=== PATIENT | female | born 1945 | race Caucasian/White ===

== ENCOUNTER 2017-08-19 23:59 | Emergency (ER) | payer MEDICARE, MEDICAID ==
[~2017-08-19] VITALS: Ht 162.6 cm; Wt 80.0 kg
[2017-08-20] MEDS ORDERED: CYCL-1 PO (01:18)
[2017-08-20 01:28] VITALS: BP 137/75
[2017-08-20] MEDS ORDERED: ibuprofen 200mg tablet PO ONE (01:35)
[2017-08-20] MEDS ORDERED: cyclobenzaprine 10mg tablet PO ONE (01:35)
== END 2017-08-20 01:33 | disposition home or self-care (01) ==
LOC: ER 23:59
DX: S46.811A Strain of other muscles, fascia and tendons at shoulder and upper arm level, right arm, initial encounter (principal); E11.9 Type 2 diabetes mellitus without complications; Z88.5 Allergy status to narcotic agent; Z79.899 Other long term (current) drug therapy; X58.XXXA Exposure to other specified factors, initial encounter; Y93.89 Activity, other specified; Y92.89 Other specified places as the place of occurrence of the external cause; Y99.8 Other external cause status
CPT/HCPCS: 99283

== ENCOUNTER 2018-01-08 06:34 | Day surgery (SDC) | payer MEDICARE, MEDICAID ==
[2018-01-06 16:49] LABS: BASOPHILS # (AUTO) 0.1 X10'3 (0-0.2); EOSINOPHILS # (AUTO) 0.3 X10'3 (0-0.9); EOSINOPHILS % (AUTO) 2.4 % (0-6); LYMPHOCYTES # (AUTO) 3.3 X10'3 (1.1-4.8); LYMPHOCYTES % (AUTO) 28.9 % (21-51); MEAN CORPUSCULAR HGB CONC 33.1 % (33.0-36.5); MEAN CORPUSCULAR VOLUME 87.6 FL (78-98); MEAN PLATELET VOLUME 9.2 FL (7.4-10.4); MONOCYTES # (AUTO) 0.8 X10'3 (0-0.9); MONOCYTES % (AUTO) 7.2 % (2-12); NEUTROPHILS # (AUTO) 6.9 X10'3 (1.8-7.7); NEUTROPHILS % (AUTO) 60.5 % (42-75); PRE OP HEMATOCRIT 43.2 % (35.0-45.0); PRE OP HEMOGLOBIN 14.3 g/dL (12.0-16.0); PRE OP PLATELET COUNT 301 X10'3 (140-440); RED BLOOD COUNT 4.93 X10'6 (4.20-5.60); RED CELL DISTRIBUTION WIDTH 15.4 % (11.5-14.5)
[2018-01-06 16:51] LABS: CLARITY,URINE SLIGHTLY CLOUDY (Clear); COLOR,URINE YELLOW (Yellow); GLUCOSE, URINE 500 mg/dl (Neg); KETONES,URINE NEGATIVE (Neg); LEUKOCYTE ESTERASE ,URINE NEGATIVE (Neg); NITRITES, URINE NEGATIVE (Neg); OCCULT BLOOD,URINE SMALL (Neg); PH,URINE 5.5 (4.8-8.0); PROTEIN,URINE >=300 mg/dl (Neg); UA COLLECTION TYPE CLN CATCH MIDSTREAM; UROBILINOGEN,URINE 0.2 E.U/dL (0.2-1.0)
[2018-01-06 17:06] LABS: ALBUMIN/GLOBULIN RATIO 0.6 (1.1-1.5); ALKALINE PHOSPHATASE 73 IU/L (46-116); BLOOD UREA NITROGEN 31 MG/DL (7-18); BUN/CREATININE RATIO 24.2 (6.6-38.0); CALCIUM 9.6 MG/DL (8.5-10.1); CHLORIDE 101 MMOL/L (99-107); CREATININE 1.28 MG/DL (0.40-0.90); PRE OP ALT 14 U/L (30-65); PRE OP ANION GAP 6 (8-16); PRE OP AST 10 U/L (10-37); PRE OP BILIRUB, TOTAL 0.2 MG/DL (0.0-1.0); PRE OP POTASSIUM 4.1 MMOL/L (3.4-5.1); PRE OP SODIUM 137 MMOL/L (135-145); TOTAL CARBON DIOXIDE 30.1 MMOL/L (24-32); TOTAL PROTEIN 8.3 G/DL (6.4-8.2); eGFR 41 ML/MIN
[2018-01-06 17:08] LABS: MUCUS STRANDS NONE SEEN /LPF (Neg); SQUAMOUS EPITHELIAL CELL,UR FEW /LPF (FEW)
[2018-01-06 17:09] LABS: BACTERIA,URINE FEW /HPF (Neg); RBC,URINE 0-2 /HPF (0-2); WBC,URINE NONE SEEN /HPF (0-4)
[2018-01-06 17:11] LABS: PRE OP GLUCOSE 271 MG/DL (70-104)
[~2018-01-08] VITALS: Ht 162.6 cm; Wt 76.2 kg
[~2018-01-08 06:34] MED LIST: CYCL-1 PO; GLIP-216 PO; LISI10TA4 PO; METF-950 PO; SIMV20TA5 PO; SITA25TA3 PO; cefazolin/dext.iso 2gm/100 ML IV ONE; famotidine 20mg tablet PO ONE; ringers solution, lacted 1,000 ML IV SCH
[2018-01-08] MEDS ORDERED: BUPIVAcaine/PF 2.5mg/ml (0.25%) 10ml vial ONE (11:06)
[2018-01-08] MEDS ORDERED: LIDOcaine 1.5% w/epinephrine 1:200,000 5ml ampul ONE (11:06)
[2018-01-08 11:30] VITALS: BP 146/82
[2018-01-08] MEDS ORDERED: fentaNYL/PF 50MCG/1 ML 2ML syringe ONE (11:38)
[2018-01-08] MEDS ORDERED: MIDAZolam 5mg/5ml vial ONE (11:38)
[2018-01-08] MEDS ORDERED: LIDOcaine 2% (20mg/ml) 5ml vial ONE (11:43)
[2018-01-08] MEDS ORDERED: propofol inj 20 ML IV ONE (11:44)
[2018-01-08] MEDS ORDERED: ringers solution, lacted 1,000 ML IV SCH (12:09)
[2018-01-08 12:10] VITALS: BP 95/76
[2018-01-08] MEDS ORDERED: fentaNYL/PF 50MCG/1 ML 2ML syringe IV PRN ×2 (12:10)
[2018-01-08] MEDS ORDERED: morphine 4 MG/ML inj SYRINge IV PRN ×2 (12:10)
[2018-01-08] MEDS ORDERED: hydrALAZINE 20mg/ml inj. IV PRN (12:10)
[2018-01-08] MEDS ORDERED: labetalol 20mg/4ml (5mg/ml) syringe IV PRN (12:10)
[2018-01-08] MEDS ORDERED: ondansetron/PF 4mg/2ml inj IV PRN (12:10)
[2018-01-08 12:20] VITALS: BP 98/74
[2018-01-08 12:30] VITALS: BP 117/71
[2018-01-08 12:40] VITALS: BP 112/68
[2018-01-08 12:50] VITALS: BP 118/76
== END 2018-01-08 12:50 | disposition home or self-care (01) ==
LOC: PAS 06:34
PROVIDERS: ATTEND Surgery
DX: M79.89 Other specified soft tissue disorders (principal); L08.89 Other specified local infections of the skin and subcutaneous tissue; G89.29 Other chronic pain; I25.2 Old myocardial infarction; E11.22 Type 2 diabetes mellitus with diabetic chronic kidney disease; I12.9 Hypertensive chronic kidney disease with stage 1 through stage 4 chronic kidney disease, or unspecified chronic kidney disease; N18.3 Chronic kidney disease, stage 3 (moderate); E66.9 Obesity, unspecified; Z88.4 Allergy status to anesthetic agent; Z87.891 Personal history of nicotine dependence; Z79.4 Long term (current) use of insulin; Z79.84 Long term (current) use of oral hypoglycemic drugs; Z68.28 Body mass index [BMI] 28.0-28.9, adult; Z79.899 Other long term (current) drug therapy; Z98.890 Other specified postprocedural states
CPT/HCPCS: 21555; 36415; 80053; 81001; 82948; 85025; 93005; J0690; J2001; J2250; J2704; J3010; J7120; 88305; A7000; J3490

== ENCOUNTER 2019-11-25 08:45 | Emergency (ER) | payer BC, MEDICAID ==
[~2019-11-25] VITALS: Ht 162.6 cm; Wt 75.9 kg
[~2019-11-25 08:45] MED LIST changes: -GLIP-216 PO; +GLIP10TA21 PO; +SIMV-42 PO; -SIMV20TA5 PO; -cefazolin/dext.iso 2gm/100 ML IV ONE; -famotidine 20mg tablet PO ONE; -ringers solution, lacted 1,000 ML IV SCH
[2019-11-25 10:01] LABS: BASOPHILS # (AUTO) 0.2 X10'3 (0-0.2); BASOPHILS % (AUTO) 1.2 % (0-1); EOSINOPHILS # (AUTO) 0.2 X10'3 (0-0.9); EOSINOPHILS % (AUTO) 1.1 % (0-6); HEMATOCRIT 37.1 % (35.0-45.0); HEMOGLOBIN 12.1 g/dl (12.0-16.0); LYMPHOCYTES # (AUTO) 2.2 X10'3 (1.1-4.8); LYMPHOCYTES % (AUTO) 13.8 % (21-51); MEAN CORPUSCULAR HGB CONC 32.7 g/dL (33.0-36.5); MEAN CORPUSCULAR VOLUME 88.9 FL (78-98); MEAN PLATELET VOLUME 9.2 FL (7.4-10.4); MONOCYTES # (AUTO) 0.9 X10'3 (0-0.9); MONOCYTES % (AUTO) 5.5 % (2-12); NEUTROPHILS # (AUTO) 12.6 X10'3 (1.8-7.7); NEUTROPHILS % (AUTO) 78.4 % (42-75); PLATELET COUNT 310 X10'3 (140-440); RED BLOOD COUNT 4.17 X10'6 (4.20-5.60); RED CELL DISTRIBUTION WIDTH 14.9 % (11.5-14.5); WHITE BLOOD COUNT 16.1 X10'3 (4.5-11.0)
[2019-11-25 10:16] LABS: ALANINE AMINOTRANSFERASE 15 U/L (12-78); ALBUMIN 2.9 G/DL (3.4-5.0); ALBUMIN/GLOBULIN RATIO 0.5 (1.1-1.5); ALKALINE PHOSPHATASE 96 IU/L (46-116); ANION GAP 8 (8-16); ASPARTATE AMINO TRANSFERASE 11 U/L (10-37); BILIRUBIN,TOTAL 0.2 MG/DL (0.1-1.0); BLOOD UREA NITROGEN 41 MG/DL (7-18); BUN/CREATININE RATIO 24.6 (6.6-38.0); CHLORIDE 105 MMOL/L (99-107); CREATININE 1.67 MG/DL (0.40-0.90); GLUCOSE 205 MG/DL (70-104); POTASSIUM 4.5 MMOL/L (3.5-5.1); SODIUM 138 MMOL/L (135-145); TOTAL CARBON DIOXIDE 24.7 MMOL/L (24-32); TOTAL PROTEIN 8.3 G/DL (6.4-8.2); eGFR 30 ML/MIN
[2019-11-25] MEDS ORDERED: DOXY100C76 PO (11:13)
[2019-11-25] MEDS ORDERED: CEPH250T PO (11:13)
[2019-11-25] MEDS ORDERED: HYDR-4383 PO (11:18)
[2019-11-25 11:28] VITALS: BP 169/76
== END 2019-11-25 11:30 | disposition home or self-care (01) ==
LOC: ER 08:47
DX: L03.116 Cellulitis of left lower limb (principal); E11.9 Type 2 diabetes mellitus without complications; F17.200 Nicotine dependence, unspecified, uncomplicated; Z88.8 Allergy status to other drugs, medicaments and biological substances; Z79.899 Other long term (current) drug therapy
CPT/HCPCS: 73630; 80053; 84145; 85025; 85651; 99284

== ENCOUNTER 2019-11-27 11:40 | Emergency (ER) | payer BC, MEDICAID ==
[~2019-11-27] VITALS: Ht 162.6 cm; Wt 75.9 kg
[~2019-11-27 11:40] MED LIST changes: +CEPH250T PO; +DOXY100C76 PO; +HYDR-4383 PO
[2019-11-27 11:51] VITALS: BP 193/83
== END 2019-11-27 13:47 | disposition home or self-care (01) ==
LOC: ER 11:41
DX: T81.49XD Infection following a procedure, other surgical site, subsequent encounter (principal); E11.9 Type 2 diabetes mellitus without complications; Z88.8 Allergy status to other drugs, medicaments and biological substances; Z79.899 Other long term (current) drug therapy
CPT/HCPCS: 99284

== ENCOUNTER 2019-12-02 13:00 | Outpatient (CLI) | payer BC, MEDICAID | END 2019-12-02 14:39 | disposition home or self-care (01) | LOC: WOUND CARE 13:00 → EDSTATUS 13:00 → WOUND CARE 14:39 | PROVIDERS: ATTEND Nurse Practitioner | DX: L03.032 Cellulitis of left toe (principal); E11.621 Type 2 diabetes mellitus with foot ulcer; L89.896 Pressure-induced deep tissue damage of other site; Z79.899 Other long term (current) drug therapy; F17.200 Nicotine dependence, unspecified, uncomplicated | CPT/HCPCS: 36416; 82948; G0463 ==

== ENCOUNTER 2020-06-30 08:27 | Emergency (ER) | payer MEDICARE, MEDICAID ==
[~2020-06-30] VITALS: Ht 162.6 cm; Wt 66.4 kg
[~2020-06-30 08:27] MED LIST changes: +APIX5TAB3 PO; +ASPI-1071 PO; +ATOR20TA66 PO; -CEPH250T PO; -CYCL-1 PO; -DOXY100C76 PO; +GABA-530 PO; +HYDR-3965 PO; -HYDR-4383 PO; +LACT1CAP26 PO; -LISI10TA4 PO; +LISI20TA28 PO; -SIMV-42 PO
[2020-06-30] MEDS ORDERED: acetaminophen 325mg tablet PO ONE (08:55)
[2020-06-30 09:20] LABS: BASOPHILS # (AUTO) 0.1 X10'3 (0-0.2); BASOPHILS % (AUTO) 0.6 % (0-1); EOSINOPHILS # (AUTO) 0.2 X10'3 (0-0.9); HEMATOCRIT 30.1 % (35.0-45.0); LYMPHOCYTES # (AUTO) 1.5 X10'3 (1.1-4.8); LYMPHOCYTES % (AUTO) 8.6 % (21-51); MEAN CORPUSCULAR HEMOGLOBIN 30.9 PG (27.0-31.0); MEAN CORPUSCULAR HGB CONC 33.3 g/dL (33.0-36.5); MEAN CORPUSCULAR VOLUME 92.6 FL (78-98); MEAN PLATELET VOLUME 8.1 FL (7.4-10.4); MONOCYTES % (AUTO) 5.7 % (2-12); NEUTROPHILS # (AUTO) 14.4 X10'3 (1.8-7.7); NEUTROPHILS % (AUTO) 84.1 % (42-75); PLATELET COUNT 599 X10'3 (140-440); RED BLOOD COUNT 3.26 X10'6 (4.20-5.60); RED CELL DISTRIBUTION WIDTH 16.2 % (11.5-14.5); WHITE BLOOD COUNT 17.1 X10'3 (4.5-11.0)
[2020-06-30 09:31] LABS: ALANINE AMINOTRANSFERASE 15 U/L (12-78); ALBUMIN 2.7 G/DL (3.4-5.0); ALBUMIN/GLOBULIN RATIO 0.6 (1.1-1.5); ALKALINE PHOSPHATASE 70 IU/L (46-116); ANION GAP 11 (8-16); ASPARTATE AMINO TRANSFERASE 16 U/L (10-37); BILIRUBIN,TOTAL 0.4 MG/DL (0.1-1.0); BLOOD UREA NITROGEN 30 MG/DL (7-18); BUN/CREATININE RATIO 16.8 (6.6-38.0); CALCIUM 9.2 MG/DL (8.5-10.1); CHLORIDE 101 MMOL/L (99-107); CREATININE 1.79 MG/DL (0.40-0.90); GLUCOSE 176 MG/DL (70-104); POTASSIUM 4.8 MMOL/L (3.5-5.1); SODIUM 138 MMOL/L (135-145); TOTAL PROTEIN 7.1 G/DL (6.4-8.2); eGFR 28 ML/MIN
[2020-06-30 09:40] LABS: CREATINE KINASE 71 U/L (26-192); MAGNESIUM 1.9 MG/DL (1.5-2.4); TROPONIN I < 0.04 NG/ML (0.0-0.05)
--- NOTE | 2020-06-30 09:50 | NUR ---
rehab services aide at bedside.
--- NOTE | 2020-06-30 11:10 | NUR ---
ISLAND DRESSING TO RIGHT ANTERIOR LOWER LEG SATURATED WITH BLOO, CLEANED WITH GAUZE AND NS, WELL APPROXIMATED, DRY AND INTACT, NO FRESH BLOOD NOTED, RAYSA INTACT: NEW ISLAND DRESSING APPLIED PATIENT HAS RIGTH HEEL OPTIFOAM COVERING A RIGHT HEEL CHRONIC WOUND THST5 ID BLACK WITH SURROUNDING TISSUE WNL DRESSING REMOVED TO RIGHT GROIN INCISON MINIMAL RED DRAINAGE: INCISON SHOWED TO MD BECAUSE OF TWO AREAS ABOUT 1 CM IN THAT AREA POUCHING OPEN IN GROIN FOLDS, CLEANED WITH CHLOHEXIDINE WASHCLOTH AND NEW ISLAND DRESSING APPLIED
[2020-06-30 11:31] LABS: TOTAL CELLS COUNTED 100
[2020-06-30 11:34] LABS: ANISOCYTOSIS 1+; PLATELET ESTIMATE INCREASED
[2020-06-30 11:39] LABS: CLARITY,URINE SLIGHTLY CLOUDY (Clear); COLOR,URINE YELLOW (Yellow); GLUCOSE, URINE NEGATIVE (Neg); KETONES,URINE TRACE mg/dl (Neg); LEUKOCYTE ESTERASE ,URINE NEGATIVE (Neg); NITRITES, URINE NEGATIVE (Neg); OCCULT BLOOD,URINE TRACE-LYSED (Neg); PH,URINE 6.5 (4.8-8.0); PROTEIN,URINE 100 mg/dl (Neg); UROBILINOGEN,URINE 0.2 E.U/dL (0.2-1.0)
[2020-06-30 11:48] LABS: UA COLLECTION TYPE STRAIGHT CATH
[2020-06-30 11:50] LABS: SQUAMOUS EPITHELIAL CELL,UR MODERATE /LPF (FEW)
[2020-06-30 11:51] LABS: BACTERIA,URINE FEW /HPF (Neg); HYALINE CASTS 0-3 /LPF (NEGATIVE); RBC,URINE 0-2 /HPF (0-2); WBC,URINE 0-4 /HPF (0-4)
--- NOTE | 2020-06-30 12:57 | NUR ---
CONTINUE WORKING ON DISCHARGE TRANSPORATATION, [facility] CAN NOT TAKE HER UNTIL 1700,. PATIENT DOES NOT HAVE HER WALKER WITH HER, SO SHE IS UNABLE TO TAKE A TAXI. DENIZ HAS NOT FRIENDS OR FAMILY TO PICK HER UP
--- NOTE | 2020-06-30 13:34 | NUR ---
speaking to social service worker lucrecia regarding transportion home per lucrecia patient has partnership insurance and it pays for rides home mesha calling for ride
[2020-06-30 15:21] VITALS: BP 145/64
[2020-07-01] MEDS ORDERED: MAGN400O6 PO (16:32)
== END 2020-06-30 15:30 | disposition home or self-care (01) ==
LOC: ER 08:27
DX: S81.801A Unspecified open wound, right lower leg, initial encounter (principal); M96.831 Postprocedural hemorrhage of a musculoskeletal structure following other procedure; W01.198A Fall on same level from slipping, tripping and stumbling with subsequent striking against other object, initial encounter; Y93.89 Activity, other specified; Y92.013 Bedroom of single-family (private) house as the place of occurrence of the external cause; Z91.81 History of falling; E11.42 Type 2 diabetes mellitus with diabetic polyneuropathy; E78.00 Pure hypercholesterolemia, unspecified; I10 Essential (primary) hypertension; Z60.2 Problems related to living alone; Z88.8 Allergy status to other drugs, medicaments and biological substances; Z79.82 Long term (current) use of aspirin; Z79.899 Other long term (current) drug therapy
CPT/HCPCS: 36415; 70450; 71045; 72125; 73560; 80053; 81001; 82550; 83735; 83880; 84145; 84484; 85007; 85025; 99285

== ENCOUNTER 2020-07-01 10:37 | Emergency (ER) | payer MEDICARE, MEDICAID ==
[~2020-07-01] VITALS: Ht 165.1 cm; Wt 66.3 kg
[2020-07-01 11:13] VITALS: BP 127/71
[2020-07-01] MEDS ORDERED: MAGN400O6 PO (16:32)
== END 2020-07-01 16:54 | disposition home or self-care (01) ==
LOC: ER 10:38
DX: T14.8XXA Other injury of unspecified body region, initial encounter (principal); K59.00 Constipation, unspecified; R11.0 Nausea; R50.9 Fever, unspecified; E11.42 Type 2 diabetes mellitus with diabetic polyneuropathy; E78.00 Pure hypercholesterolemia, unspecified; I10 Essential (primary) hypertension; Z60.2 Problems related to living alone; Z88.8 Allergy status to other drugs, medicaments and biological substances; Z79.82 Long term (current) use of aspirin; Z79.899 Other long term (current) drug therapy; X58.XXXA Exposure to other specified factors, initial encounter; Y93.89 Activity, other specified; Y92.89 Other specified places as the place of occurrence of the external cause; Y99.8 Other external cause status
CPT/HCPCS: 99283

== ENCOUNTER 2020-08-11 20:53 | Inpatient (IN) | payer MEDICARE, MEDICAID ==
[~2020-08-11] VITALS: Ht 162.6 cm; Wt 66.4 kg
[~2020-08-11 20:53] MED LIST changes: -ASPI-1071 PO; +ASPI81TA52 PO; -ATOR20TA66 PO; +ATOR40TA71 PO; +CEPH-585 PO; -GLIP10TA21 PO; +HYDR-3964 PO; -HYDR-3965 PO; -LACT1CAP26 PO; -METF-950 PO
[2020-08-11] MEDS ORDERED: sodium bicarbonate (8.4%) inj. 100 MEQ in dextrose 5%-water 1,000 ML IV ONE (21:50)
[2020-08-11 21:54] LABS: BASOPHILS % (AUTO) 0.3 % (0-1); EOSINOPHILS % (AUTO) 0.1 % (0-6); HEMATOCRIT 32.8 % (35.0-45.0); HEMOGLOBIN 10.5 g/dl (12.0-16.0); LYMPHOCYTES # (AUTO) 0.8 X10'3 (1.1-4.8); LYMPHOCYTES % (AUTO) 6.2 % (21-51); MEAN CORPUSCULAR HEMOGLOBIN 29.5 PG (27.0-31.0); MEAN CORPUSCULAR HGB CONC 32.1 g/dL (33.0-36.5); MEAN CORPUSCULAR VOLUME 91.7 FL (78-98); MONOCYTES # (AUTO) 0.6 X10'3 (0-0.9); MONOCYTES % (AUTO) 4.3 % (2-12); NEUTROPHILS # (AUTO) 11.7 X10'3 (1.8-7.7); NEUTROPHILS % (AUTO) 89.1 % (42-75); PLATELET COUNT 434 X10'3 (140-440); RED BLOOD COUNT 3.57 X10'6 (4.20-5.60); RED CELL DISTRIBUTION WIDTH 16.2 % (11.5-14.5); WHITE BLOOD COUNT 13.2 X10'3 (4.5-11.0)
[2020-08-11 22:18] LABS: ALANINE AMINOTRANSFERASE 9 U/L (12-78); ALBUMIN 3.1 G/DL (3.4-5.0); ALBUMIN/GLOBULIN RATIO 0.7 (1.1-1.5); ALKALINE PHOSPHATASE 62 IU/L (46-116); ANION GAP 9 (8-16); ASPARTATE AMINO TRANSFERASE 10 U/L (10-37); BILIRUBIN,TOTAL 0.3 MG/DL (0.1-1.0); BLOOD UREA NITROGEN 31 MG/DL (7-18); BUN/CREATININE RATIO 19.1 (6.6-38.0); CALCIUM 8.9 MG/DL (8.5-10.1); CHLORIDE 103 MMOL/L (99-107); CREATININE 1.62 MG/DL (0.40-0.90); GLUCOSE 96 MG/DL (70-104); SODIUM 139 MMOL/L (135-145); TOTAL PROTEIN 7.5 G/DL (6.4-8.2); TROPONIN I < 0.04 NG/ML (0.0-0.05); eGFR 31 ML/MIN
[2020-08-11 22:50] LABS: CLARITY,URINE CLEAR (Clear); GLUCOSE, URINE NEGATIVE (Neg); KETONES,URINE NEGATIVE (Neg); LEUKOCYTE ESTERASE ,URINE NEGATIVE (Neg); NITRITES, URINE NEGATIVE (Neg); OCCULT BLOOD,URINE MODERATE (Neg); PH,URINE 6.5 (4.8-8.0); PROTEIN,URINE 100 mg/dl (Neg); UROBILINOGEN,URINE 0.2 E.U/dL (0.2-1.0)
[2020-08-11 22:51] LABS: COLOR,URINE STRAW (Yellow); UA COLLECTION TYPE STRAIGHT CATH
[2020-08-11 22:58] LABS: BACTERIA,URINE NONE SEEN /HPF (Neg); HYALINE CASTS 0-3 /LPF (NEGATIVE); RBC,URINE 0-2 /HPF (0-2); SQUAMOUS EPITHELIAL CELL,UR NONE SEEN /LPF (FEW); WBC,URINE NONE SEEN /HPF (0-4)
[2020-08-11] MEDS ORDERED: HYDROcodone/acetaminophen 5mg/325mg tablet PO ONE (23:30)
[2020-08-11] MEDS ORDERED: INSU100I45 SQ (23:49)
[2020-08-11] MEDS ORDERED: METF-436 PO (23:49)
[2020-08-11] MEDS ORDERED: GLIP10TA21 PO (23:49)
[2020-08-12] MEDS ORDERED: dextrose 5%-water 1,000 ML IV ONE (00:10)
[2020-08-12] MEDS ORDERED: diphenhydrAMINE 25mg capsule PO PRN (00:20)
[2020-08-12] MEDS ORDERED: acetaminophen 325mg tablet PO PRN ×2 (00:20)
[2020-08-12] MEDS ORDERED: HYDROmorphone inj. 0.5 MG/0.5 ML DISP.SYRIN IV PRN (00:20)
[2020-08-12] MEDS ORDERED: magnesium hydroxide 30ml (MOM) UD suspension PO PRN (00:20)
[2020-08-12] MEDS ORDERED: dextrose 50%-water 50ml dispensing syringe IV PRN (00:20)
[2020-08-12] MEDS ORDERED: HYDROcodone/acetaminophen 5mg/325mg tablet PO PRN (00:20)
[2020-08-12] MEDS ORDERED: mag hydrox/Alum hydrox/simeth 30ml oral suspension PO PRN (00:20)
[2020-08-12] MEDS ORDERED: insulin Lispro (HumaLOG) vial - multi-dose SQ SCH (00:20)
[2020-08-12] MEDS ORDERED: glucagon, human recombinant 1mg kit SUBCUT PRN (00:20)
[2020-08-12] MEDS ORDERED: morphine 2 MG/ML inj. syringe IV PRN ×2 (00:20)
[2020-08-12] MEDS ORDERED: ondansetron 4mg rapidly disintigrating tab PO PRN (00:20)
[2020-08-12] MEDS ORDERED: bisacodyl 10mg suppository rectal RC PRN (00:20)
[2020-08-12] MEDS ORDERED: ondansetron/PF 4mg/2ml inj IV PRN (00:20)
[2020-08-12] MEDS ORDERED: acetaminophen 650mg rectal suppository RC PRN (00:20)
[2020-08-12] MEDS ORDERED: normal saline 1000ml 1,000 ML IV SCH ×2 (00:20→00:25)
[2020-08-12] MEDS ORDERED: dextrose ORAL solution 15 GM/59 ML bottle PO PRN ×2 (00:20)
[2020-08-12] MEDS ORDERED: diphenhydrAMINE 50 mg/ml inj IV PRN (00:20)
[2020-08-12] MEDS ORDERED: MESSAGE TO PHARMACY PO ONE (00:20)
[2020-08-12 00:58] LABS: MAGNESIUM 1.6 MG/DL (1.5-2.4)
--- NOTE | 2020-08-12 01:19 | NUR ---
PT REQUESTING MELATONIN TO SLEEP. RECEIVED VERBAL ORDER FOR 3MG MELATONIN PO HS
[2020-08-12] MEDS ORDERED: Melatonin 3mg tablet PO ONE (01:50)
[2020-08-12] MEDS: dextrose 50%-water 50ml dispensing syringe IV PRN ×2 (03:44→12:38)
[2020-08-12] MEDS: HYDROcodone/acetaminophen 10/325mg tab PO PRN ×5 (04:07→20:32)
--- NOTE | 2020-08-12 04:51 | NUR ---
Patient provided with milk, orange juice and crakers. She ate a bit of each. Brief changed and purewick put in place, patient able to turn side to side. Placed in gown and bed sheets changed.
[2020-08-12] MEDS ORDERED: dextrose 50%-water 50ml dispensing syringe IV ONE (06:00)
[2020-08-12] MEDS ORDERED: sodium chloride inj. 154 MEQ in Dextrose 10%-water IV solution 961.5 ML IV SCH (06:00)
--- NOTE | 2020-08-12 07:00 | NUR ---
Patient in room CASSY 360. I have received report from Marcelino SOL and had the opportunity to ask questions and assume patient care.
--- NOTE | 2020-08-12 07:17 | NUR ---
called pharmacy, d10% iv fluid will be sent up to surgical floor,RN Mat unable to take report at this time.Spoke to Torri.
[2020-08-12] MEDS ORDERED: heparin, porcine 5000 units/ml vial SQ SCH (08:00)
[2020-08-12 08:08] VITALS: BP 155/64
[2020-08-12] MEDS ORDERED: magnesium Cl slow-release 64mg tablet PO PRN (08:15)
[2020-08-12] MEDS ORDERED: potassium Cl 20 mEq SR tablet PO PRN ×2 (08:15)
[2020-08-12] MEDS ORDERED: potassium Cl 40MEQ/1/2NS 520ml 520 ML IV PRN (08:15)
[2020-08-12] MEDS ORDERED: magnesium 4gm in 100ml NS 100 ML IV PRN (08:15)
[2020-08-12] MEDS: ampicill/sulbac 1.5gm/NS 100ml 100 ML IV SCH ×3 (08:33→23:49)
[2020-08-12] MEDS: gabapentin 100mg capsule PO SCH (08:49)
[2020-08-12] MEDS: lisinopril 20mg tablet PO SCH (08:50)
[2020-08-12] MEDS: pantoprazole 40mg Tablet.DR PO SCH (08:51)
[2020-08-12] MEDS: apixaban 5mg tablet PO SCH ×2 (08:52→20:31)
[2020-08-12] MEDS: docusate sod 100mg capsule PO SCH ×2 (08:52→20:31)
[2020-08-12] MEDS: aspirin 81mg tablet.DR PO SCH (08:52)
[2020-08-12 10:13] LABS: HEMOGLOBIN A1C 6.8 % (4.5-6.2)
[2020-08-12] MEDS: Dextrose 10%-water IV solution 1,000 ML IV SCH ×3 (10:42→23:49)
[2020-08-12 11:00] VITALS: BP 148/52
--- NOTE | 2020-08-12 18:15 | NUR ---
Patient in room CASSY 360. I have received report from Joey SOL and had the opportunity to ask questions and assume patient care.
--- NOTE | 2020-08-12 18:17 | NUR ---
Problems reprioritized. Patient report given, questions answered & plan of care reviewed with Cassie SOL.
[2020-08-12 19:00] VITALS: BP 112/52
[2020-08-12] MEDS: K and/or MAG REPLACEMENT MC SCH (20:00)
[2020-08-12] MEDS: lactobacillus rhamnosus 10,000 MMU CELLS/CAPSULE PO SCH (20:32)
[2020-08-12] MEDS ORDERED: insulin glargine (Lantus) pen - multi-dose SQ SCH (21:00)
[2020-08-12] MEDS ORDERED: temazepam 15mg capsule PO PRN (21:00)
[2020-08-12] MEDS ORDERED: Melatonin 3mg tablet PO SCH (21:00)
[2020-08-13] VITALS: BP 122/64
[2020-08-13] MEDS: HYDROcodone/acetaminophen 10/325mg tab PO PRN ×2 (00:35→05:15)
--- NOTE | 2020-08-13 06:24 | NUR ---
Problems reprioritized. Patient report given, questions answered & plan of care reviewed with Rivas SOL.
--- NOTE | 2020-08-13 06:28 | NUR ---
Patient in room CASSY 360. I have received report from SWETA Matthews and had the opportunity to ask questions and assume patient care.
[2020-08-13 06:34] LABS: ALANINE AMINOTRANSFERASE 13 U/L (12-78); ALBUMIN 2.6 G/DL (3.4-5.0); ALBUMIN/GLOBULIN RATIO 0.7 (1.1-1.5); ALKALINE PHOSPHATASE 57 IU/L (46-116); ANION GAP 7 (8-16); ASPARTATE AMINO TRANSFERASE 10 U/L (10-37); BILIRUBIN,TOTAL 0.3 MG/DL (0.1-1.0); BLOOD UREA NITROGEN 18 MG/DL (7-18); BUN/CREATININE RATIO 12.2 (6.6-38.0); CALCIUM 8.4 MG/DL (8.5-10.1); CHLORIDE 101 MMOL/L (99-107); CREATININE 1.48 MG/DL (0.40-0.90); GLUCOSE 246 MG/DL (70-104); MAGNESIUM 1.4 MG/DL (1.5-2.4); PHOSPHORUS 3.3 MG/DL (2.3-4.5); POTASSIUM 3.6 MMOL/L (3.5-5.1); SODIUM 136 MMOL/L (135-145); TOTAL CARBON DIOXIDE 27.7 MMOL/L (24-32); TOTAL PROTEIN 6.5 G/DL (6.4-8.2); eGFR 34 ML/MIN
[2020-08-13 06:37] LABS: BASOPHILS # (AUTO) 0.1 X10'3 (0-0.2); BASOPHILS % (AUTO) 0.8 % (0-1); EOSINOPHILS # (AUTO) 0.5 X10'3 (0-0.9); EOSINOPHILS % (AUTO) 4.1 % (0-6); HEMATOCRIT 33.1 % (35.0-45.0); HEMOGLOBIN 10.8 g/dl (12.0-16.0); LYMPHOCYTES % (AUTO) 18.2 % (21-51); MEAN CORPUSCULAR HEMOGLOBIN 29.5 PG (27.0-31.0); MEAN CORPUSCULAR HGB CONC 32.5 g/dL (33.0-36.5); MEAN CORPUSCULAR VOLUME 90.7 FL (78-98); MONOCYTES # (AUTO) 1.1 X10'3 (0-0.9); MONOCYTES % (AUTO) 10.2 % (2-12); NEUTROPHILS # (AUTO) 7.4 X10'3 (1.8-7.7); NEUTROPHILS % (AUTO) 66.7 % (42-75); PLATELET COUNT 411 X10'3 (140-440); RED BLOOD COUNT 3.65 X10'6 (4.20-5.60); WHITE BLOOD COUNT 11.2 X10'3 (4.5-11.0)
[2020-08-13 07:00] VITALS: BP 154/58
[2020-08-13] MEDS: gabapentin 100mg capsule PO SCH (07:22)
[2020-08-13] MEDS: pantoprazole 40mg Tablet.DR PO SCH (07:22)
[2020-08-13] MEDS: lisinopril 20mg tablet PO SCH (07:22)
[2020-08-13] MEDS: apixaban 5mg tablet PO SCH (07:22)
[2020-08-13] MEDS: docusate sod 100mg capsule PO SCH (07:22)
[2020-08-13] MEDS: aspirin 81mg tablet.DR PO SCH (07:22)
[2020-08-13] MEDS: lactobacillus rhamnosus 10,000 MMU CELLS/CAPSULE PO SCH (07:22)
[2020-08-13] MEDS: ampicill/sulbac 1.5gm/NS 100ml 100 ML IV SCH (07:23)
[2020-08-13] MEDS: K and/or MAG REPLACEMENT MC SCH (08:00)
--- NOTE | 2020-08-13 09:27 | NUR ---
DM consult: Pt with A1c 6.8%, DM education not indicated at this time. Will continue to follow. Addendum: 08/13/20 at [address] Amended: Links added.
[2020-08-13] MEDS: Dextrose 10%-water IV solution 1,000 ML IV SCH (11:33)
[2020-08-13 12:45] VITALS: BP 131/68
[2020-08-13] MEDS ORDERED: AMOX-419 PO (13:58)
[2020-08-13] MEDS ORDERED: LACT1CAP26 PO (13:58)
[2020-08-13] MEDS ORDERED: PANT40TA54 PO (13:58)
--- NOTE | 2020-08-13 14:34 | NUR ---
wound pictures taken @ 0500 today. Addendum: 08/13/20 at 1435 by Rivas Davalos RN Amended: Links added.
--- NOTE | 2020-08-13 14:42 | NUR ---
Patient refuses to have insulin coverage for lunch today. She states she is going home and does not want her blood sugar to be low when she gets home.
--- NOTE | 2020-08-13 14:51 | NUR ---
Patient is alert and oriented with no complaints at this time. Discussed with patient discharge teaching including new prescriptions, home health Rn to place wound vac back on and if not [facility] wound [facility] could, follow up with [facility] wound [facility], follow up with PCP and manage DM. Patient verbalizes understanding of teaching. Wound care clinic number on discharge packet. Patient reports that she lives at [facility] and the collection clerk will be able to assist patient to her wheelchair and into her apartment. Patient reports that the technical clerk has keys to all the apartments. Patient belongings in room packed and ready for dc. Patient did not have any personal belongings that she brought from home per patient. She has no clothes to go home in. Patient given hospital gown, pants and mesh underwear to dc in. Patient appreciative of this. Cab called for patient.
--- NOTE | 2020-08-13 15:26 | NUR ---
Patient dc'd in wheelchair accompanied by x1 staff. Cab transporting home. Addendum: 08/13/20 at 1527 by Rivas Davalos RN Dc'd with all personal belingings. Addendum: 08/13/20 at 1530 by Rivas Davalos RN Personal belongings consisted of x1 shirt and x1 pant that were saturated with urine found in side drawers..
== END 2020-08-13 15:26 | disposition home health service (06) | DRG 638 ==
LOC: ER 20:54 → ED HOLD 08-12 00:17 → SUR 3N 08-12 07:46
PROVIDERS: ADMIT Family Medicine; ATTEND Family Medicine
DX: E11.649 Type 2 diabetes mellitus with hypoglycemia without coma (principal); I50.32 Chronic diastolic (congestive) heart failure; L03.116 Cellulitis of left lower limb; L03.115 Cellulitis of right lower limb; E11.42 Type 2 diabetes mellitus with diabetic polyneuropathy; N17.9 Acute kidney failure, unspecified; Z60.2 Problems related to living alone; E78.00 Pure hypercholesterolemia, unspecified; S31.109A Unspecified open wound of abdominal wall, unspecified quadrant without penetration into peritoneal cavity, initial encounter; X58.XXXA Exposure to other specified factors, initial encounter; E78.5 Hyperlipidemia, unspecified; F17.210 Nicotine dependence, cigarettes, uncomplicated; G89.4 Chronic pain syndrome; I11.0 Hypertensive heart disease with heart failure; R31.9 Hematuria, unspecified; Z79.891 Long term (current) use of opiate analgesic; Z88.8 Allergy status to other drugs, medicaments and biological substances; Z79.899 Other long term (current) drug therapy; Z79.82 Long term (current) use of aspirin; Z79.4 Long term (current) use of insulin; Y93.89 Activity, other specified; Y92.89 Other specified places as the place of occurrence of the external cause; Y99.8 Other external cause status
CPT/HCPCS: 36415; 71045; 80053; 81001; 82948; 83036; 83605; 83735; 83880; 84100; 84443; 84484; 85025; 87040; 87081; 99285; G0378; J0295; J1815; J7030; J7070

== ENCOUNTER 2020-09-24 14:47 | Emergency (ER) | payer MEDICARE, MEDICAID ==
[~2020-09-24] VITALS: Ht 162.6 cm; Wt 66.4 kg
[~2020-09-24 14:47] MED LIST changes: -ATOR40TA71 PO; -CEPH-585 PO; +GLIP10TA21 PO; +INSU100I45 SQ; +LACT1CAP26 PO; +METF-436 PO; +PANT40TA54 PO
[2020-09-24 17:01] LABS: BASOPHILS % (AUTO) 0.3 % (0-1); EOSINOPHILS # (AUTO) 0.4 X10'3 (0-0.9); EOSINOPHILS % (AUTO) 3.7 % (0-6); HEMATOCRIT 35.4 % (35.0-45.0); HEMOGLOBIN 11.5 g/dl (12.0-16.0); LYMPHOCYTES # (AUTO) 3.2 X10'3 (1.1-4.8); MEAN CORPUSCULAR HEMOGLOBIN 28.6 PG (27.0-31.0); MEAN CORPUSCULAR HGB CONC 32.5 g/dL (33.0-36.5); MEAN CORPUSCULAR VOLUME 88.1 FL (78-98); MONOCYTES # (AUTO) 0.7 X10'3 (0-0.9); MONOCYTES % (AUTO) 6.7 % (2-12); NEUTROPHILS # (AUTO) 6.6 X10'3 (1.8-7.7); NEUTROPHILS % (AUTO) 60.3 % (42-75); PLATELET COUNT 372 X10'3 (140-440); RED BLOOD COUNT 4.02 X10'6 (4.20-5.60); RED CELL DISTRIBUTION WIDTH 15.5 % (11.5-14.5)
[2020-09-24 17:21] LABS: ALANINE AMINOTRANSFERASE 8 U/L (12-78); ALBUMIN 3.6 G/DL (3.4-5.0); ALBUMIN/GLOBULIN RATIO 0.8 (1.1-1.5); ALKALINE PHOSPHATASE 70 IU/L (46-116); ANION GAP 9 (8-16); ASPARTATE AMINO TRANSFERASE 13 U/L (10-37); BILIRUBIN,TOTAL 0.5 MG/DL (0.1-1.0); BLOOD UREA NITROGEN 52 MG/DL (7-18); BUN/CREATININE RATIO 27.1 (6.6-38.0); CALCIUM 8.6 MG/DL (8.5-10.1); CHLORIDE 108 MMOL/L (99-107); CREATININE 1.92 MG/DL (0.40-0.90); GLUCOSE 129 MG/DL (70-104); POTASSIUM 5.8 MMOL/L (3.5-5.1); SODIUM 143 MMOL/L (135-145); TOTAL CARBON DIOXIDE 26.2 MMOL/L (24-32); eGFR 25 ML/MIN
[2020-09-24] MEDS ORDERED: normal saline 1000ml 1,000 ML IV ONE (17:30)
--- NOTE | 2020-09-24 17:52 | NUR ---
PT REFUSED TO HAVE IV AND IV FLUIDS. PROVIDER NOTIFIED.
[2020-09-24] MEDS ORDERED: SULF1TAB45 PO (18:26)
[2020-09-24] MEDS ORDERED: CEPH250T PO (18:26)
[2020-09-24 18:30] VITALS: BP 185/77
== END 2020-09-24 18:59 | disposition home or self-care (01) ==
LOC: ER 14:48
DX: E11.621 Type 2 diabetes mellitus with foot ulcer (principal); L08.9 Local infection of the skin and subcutaneous tissue, unspecified; E11.43 Type 2 diabetes mellitus with diabetic autonomic (poly)neuropathy; E78.00 Pure hypercholesterolemia, unspecified; I10 Essential (primary) hypertension; Z88.8 Allergy status to other drugs, medicaments and biological substances; Z79.82 Long term (current) use of aspirin; Z79.899 Other long term (current) drug therapy; Z79.4 Long term (current) use of insulin; Z91.048 Other nonmedicinal substance allergy status; X58.XXXA Exposure to other specified factors, initial encounter; Y93.9 Activity, unspecified; Y92.89 Other specified places as the place of occurrence of the external cause; Y99.8 Other external cause status
CPT/HCPCS: 36415; 73630; 80053; 83605; 84145; 85025; 99284

== ENCOUNTER 2020-10-03 10:34 | Inpatient (IN) | payer MEDICARE, MEDICAID ==
[~2020-10-03] VITALS: Ht 162.6 cm; Wt 65.9 kg
[~2020-10-03 10:34] MED LIST changes: +CEPH250T PO; +SULF1TAB45 PO
[2020-10-03 11:17] LABS: BASOPHILS # (AUTO) 0.1 X10'3 (0-0.2); BASOPHILS % (AUTO) 0.4 % (0-1); EOSINOPHILS # (AUTO) 0.3 X10'3 (0-0.9); EOSINOPHILS % (AUTO) 1.7 % (0-6); HEMATOCRIT 26.4 % (35.0-45.0); HEMOGLOBIN 8.4 g/dl (12.0-16.0); LYMPHOCYTES % (AUTO) 20.5 % (21-51); MEAN CORPUSCULAR HEMOGLOBIN 28.2 PG (27.0-31.0); MEAN CORPUSCULAR HGB CONC 31.8 g/dL (33.0-36.5); MEAN CORPUSCULAR VOLUME 88.6 FL (78-98); MEAN PLATELET VOLUME 8.6 FL (7.4-10.4); MONOCYTES % (AUTO) 6.7 % (2-12); NEUTROPHILS # (AUTO) 10.2 X10'3 (1.8-7.7); NEUTROPHILS % (AUTO) 70.7 % (42-75); PLATELET COUNT 385 X10'3 (140-440); RED BLOOD COUNT 2.97 X10'6 (4.20-5.60); WHITE BLOOD COUNT 14.5 X10'3 (4.5-11.0)
[2020-10-03 11:26] LABS: ALBUMIN 2.8 G/DL (3.4-5.0); ANION GAP 12 (8-16); BLOOD UREA NITROGEN 69 MG/DL (7-18); BUN/CREATININE RATIO 21.8 (6.6-38.0); CALCIUM 8.6 MG/DL (8.5-10.1); CHLORIDE 103 MMOL/L (99-107); CREATININE 3.16 MG/DL (0.40-0.90); GLUCOSE 185 MG/DL (70-104); POTASSIUM 5.8 MMOL/L (3.5-5.1); SODIUM 135 MMOL/L (135-145); eGFR 14 ML/MIN
[2020-10-03] MEDS ORDERED: SULF1TAB49 PO (13:32)
[2020-10-03] MEDS ORDERED: SIMV-42 PO (13:32)
[2020-10-03] MEDS ORDERED: CEPH250C2 PO (13:33)
[2020-10-03] MEDS ORDERED: NAPR-996 PO (13:33)
[2020-10-03] MEDS ORDERED: potassium Cl 20 mEq SR tablet PO PRN ×2 (13:45)
[2020-10-03] MEDS ORDERED: magnesium 2GM in 50ml NS 50 ML IV PRN (13:45)
[2020-10-03] MEDS ORDERED: magnesium 4gm in 100ml NS 100 ML IV PRN (13:45)
[2020-10-03] MEDS ORDERED: acetaminophen 325mg tablet PO PRN (13:45)
[2020-10-03] MEDS ORDERED: insulin Lispro (HumaLOG) vial - multi-dose SQ SCH (13:45)
[2020-10-03] MEDS ORDERED: normal saline 1000ml 1,000 ML IV SCH (13:45)
[2020-10-03] MEDS ORDERED: dextrose 50%-water 50ml dispensing syringe IV PRN ×2 (13:45)
[2020-10-03] MEDS ORDERED: potassium Cl 40MEQ/1/2NS 520ml 520 ML IV PRN ×2 (13:45)
[2020-10-03] MEDS ORDERED: dextrose ORAL solution 15 GM/59 ML bottle PO PRN ×2 (13:45)
[2020-10-03] MEDS ORDERED: mag hydrox/Alum hydrox/simeth 30ml oral suspension PO PRN (13:45)
[2020-10-03] MEDS ORDERED: ondansetron/PF 4mg/2ml inj IV PRN (13:45)
[2020-10-03] MEDS ORDERED: magnesium Cl slow-release 64mg tablet PO PRN (13:45)
[2020-10-03] MEDS ORDERED: glucagon, human recombinant 1mg kit SUBCUT PRN (13:45)
[2020-10-03] MEDS ORDERED: MESSAGE TO PHARMACY PO ONE (13:45)
[2020-10-03] MEDS ORDERED: sodium bicarbonate (8.4%) inj. 50 MEQ in sodium chloride 0.45% 950 ML IV SCH (14:00)
[2020-10-03] MEDS: sodium bicarbonate (8.4%) inj. 50 MEQ in sodium chloride 0.45% 1,000 ML IV SCH (14:10)
[2020-10-03 14:58] LABS: CHOL/HDL RATIO 3.7 (0.00-4.99); CHOLESTEROL 131 MG/DL (0-200); HDL CHOLESTEROL 35 MG/DL (35-60); LDL CHOLESTEROL 54 MG/DL (50-100); TRIGLYCERIDES 203 MG/DL (20-135)
[2020-10-03] MEDS: HYDROcodone/acetaminophen 10/325mg tab PO PRN ×2 (15:19→21:37)
[2020-10-03 15:39] LABS: PARTIAL THROMBOPLASTIN TIME 26 SECONDS (22-32)
[2020-10-03] MEDS ORDERED: GABA300C PO (19:21)
[2020-10-03] MEDS: heparin, porcine 5000 units/ml vial SQ SCH (20:00)
[2020-10-03] MEDS: K and/or MAG REPLACEMENT MC SCH (20:00)
[2020-10-03] MEDS: atorvastatin 10mg tablet PO SCH (21:38)
[2020-10-03] MEDS: insulin glargine (Lantus) pen - multi-dose SQ SCH (21:48)
[2020-10-04] MEDS: HYDROcodone/acetaminophen 10/325mg tab PO PRN ×4 (00:37→21:01)
[2020-10-04] MEDS: sodium bicarbonate (8.4%) inj. 50 MEQ in sodium chloride 0.45% 1,000 ML IV SCH ×2 (00:40→11:10)
--- NOTE | 2020-10-04 00:49 | NUR ---
Patient assisted to bathroom with wheelchiar- tolerated well with minimal assistance. Pain medication administered per request.
[2020-10-04 00:59] LABS: CLARITY,URINE CLEAR (Clear); COLOR,URINE YELLOW (Yellow); GLUCOSE, URINE NEGATIVE (Neg); KETONES,URINE NEGATIVE (Neg); LEUKOCYTE ESTERASE ,URINE NEGATIVE (Neg); NITRITES, URINE NEGATIVE (Neg); OCCULT BLOOD,URINE NEGATIVE (Neg); PH,URINE 5.5 (4.8-8.0); PROTEIN,URINE 30 mg/dl (Neg); UROBILINOGEN,URINE 0.2 E.U/dL (0.2-1.0)
[2020-10-04 01:09] LABS: UA COLLECTION TYPE CLN CATCH MIDSTREAM
[2020-10-04 01:11] LABS: BACTERIA,URINE NONE SEEN /HPF (Neg); MUCUS STRANDS NONE SEEN /LPF (Neg); RBC,URINE NONE SEEN /HPF (0-2); SQUAMOUS EPITHELIAL CELL,UR FEW /LPF (FEW); WBC,URINE 0-4 /HPF (0-4)
[2020-10-04 03:06] LABS: BASOPHILS # (AUTO) 0.1 X10'3 (0-0.2); BASOPHILS % (AUTO) 0.7 % (0-1); EOSINOPHILS # (AUTO) 0.4 X10'3 (0-0.9); EOSINOPHILS % (AUTO) 3.1 % (0-6); HEMATOCRIT 23.5 % (35.0-45.0); HEMOGLOBIN 7.5 g/dl (12.0-16.0); LYMPHOCYTES # (AUTO) 3.5 X10'3 (1.1-4.8); LYMPHOCYTES % (AUTO) 30.9 % (21-51); MEAN CORPUSCULAR HEMOGLOBIN 27.7 PG (27.0-31.0); MEAN CORPUSCULAR VOLUME 86.7 FL (78-98); MONOCYTES # (AUTO) 0.7 X10'3 (0-0.9); MONOCYTES % (AUTO) 6.4 % (2-12); NEUTROPHILS # (AUTO) 6.7 X10'3 (1.8-7.7); NEUTROPHILS % (AUTO) 58.9 % (42-75); PLATELET COUNT 357 X10'3 (140-440); RED BLOOD COUNT 2.71 X10'6 (4.20-5.60); RED CELL DISTRIBUTION WIDTH 16.1 % (11.5-14.5); WHITE BLOOD COUNT 11.4 X10'3 (4.5-11.0)
[2020-10-04 03:18] LABS: ALANINE AMINOTRANSFERASE 8 U/L (12-78); ALBUMIN 2.4 G/DL (3.4-5.0); ALBUMIN/GLOBULIN RATIO 0.6 (1.1-1.5); ALKALINE PHOSPHATASE 57 IU/L (46-116); ANION GAP 6 (8-16); ASPARTATE AMINO TRANSFERASE 12 U/L (10-37); BILIRUBIN,TOTAL 0.2 MG/DL (0.1-1.0); BLOOD UREA NITROGEN 64 MG/DL (7-18); BUN/CREATININE RATIO 22.9 (6.6-38.0); CALCIUM 8.1 MG/DL (8.5-10.1); CHLORIDE 105 MMOL/L (99-107); CREATININE 2.79 MG/DL (0.40-0.90); GLUCOSE 132 MG/DL (70-104); MAGNESIUM 1.9 MG/DL (1.5-2.4); SODIUM 136 MMOL/L (135-145); TOTAL CARBON DIOXIDE 24.6 MMOL/L (24-32); TOTAL PROTEIN 6.2 G/DL (6.4-8.2); eGFR 17 ML/MIN
[2020-10-04] MEDS ORDERED: calcium gluconate inj. 2 GM in normal saline 100ml IV soln 100 ML IV ONE (03:25)
[2020-10-04] MEDS ORDERED: sodium polystyrene sulfonate 15gm/60ml oral suspension PO ONE (03:25)
[2020-10-04] MEDS: CALCIUM GLUC 1gm/50ml NACL,iso 50 ML IV SCH ×2 (03:48→04:41)
[2020-10-04] MEDS: HYDROcodone/acetaminophen 5mg/325mg tablet PO PRN (03:52)
--- NOTE | 2020-10-04 04:07 | NUR ---
Patient drank medicaiton easily, bedside commode set up at bedside. Also provided with pain medication per request. No further needs at this time.
[2020-10-04] MEDS ORDERED: insulin regular, human 10 units/0.1 ml syringe IV ONE (08:10)
[2020-10-04] MEDS ORDERED: CALCIUM GLUC 1gm/50ml NACL,iso 50 ML IV PRN (08:10)
[2020-10-04] MEDS ORDERED: dextrose 50%-water 50ml dispensing syringe IV ONE (08:10)
[2020-10-04] MEDS: aspirin 81mg tablet.DR PO SCH (10:55)
[2020-10-04] MEDS: heparin, porcine 5000 units/ml vial SQ SCH (10:57)
[2020-10-04 11:20] VITALS: BP 131/42
[2020-10-04] MEDS: K and/or MAG REPLACEMENT MC SCH ×2 (11:20→19:31)
--- NOTE | 2020-10-04 11:20 | NUR ---
received report from SWETA Boo. patient arrived to floor. ZORAS.
[2020-10-04] MEDS ORDERED: heparin 10,000 units/1 ML INJ IV ONE (14:05)
--- NOTE | 2020-10-04 15:42 | NUR ---
PAGER ID: [phone] MESSAGE: Natalie CrawfordA: Did Dr. Acosta want the CO2 angio? they are calling for clarification on the order, he did mention on his way out that he could use old imagining.. thank you, krish [phone]
[2020-10-04] MEDS: heparin 25,000 UNIT/250ml bag 250 ML IV SCH (16:38)
--- NOTE | 2020-10-04 17:52 | NUR ---
PAGER ID: [phone] MESSAGE: Natalie Crawford: please give me a call regarding order clarification. thank you! krish [phone]
--- NOTE | 2020-10-04 18:17 | NUR ---
Problems reprioritized. Patient report given, questions answered & plan of care reviewed with SWETA Holm.
[2020-10-04] MEDS: ceFAZolin/D5W- 1GM premix 50 ML IV SCH (18:29)
[2020-10-04] MEDS: sodium bicarbonate (8.4%) inj. 100 MEQ in sodium chloride 0.45% 1,000 ML IV SCH (18:29)
[2020-10-04 18:40] VITALS: BP 158/43
[2020-10-04] MEDS: insulin glargine (Lantus) pen - multi-dose SQ SCH (21:00)
[2020-10-04] MEDS: atorvastatin 10mg tablet PO SCH (21:01)
[2020-10-04] MEDS: lactobacillus rhamnosus 10,000 MMU CELLS/CAPSULE PO SCH (21:02)
[2020-10-04] MEDS: acetylcysteine 200 MG/ml 4ml vial PO SCH (21:02)
[2020-10-05] VITALS: BP 139/40
[2020-10-05] MEDS: ceFAZolin/D5W- 1GM premix 50 ML IV SCH ×4 (00:11→23:56)
[2020-10-05] MEDS: temazepam 15mg capsule PO PRN (00:14)
[2020-10-05] MEDS: sodium bicarbonate (8.4%) inj. 100 MEQ in sodium chloride 0.45% 1,000 ML IV SCH (04:00)
[2020-10-05 04:08] LABS: BASOPHILS # (AUTO) 0.1 X10'3 (0-0.2); BASOPHILS % (AUTO) 1.1 % (0-1); EOSINOPHILS # (AUTO) 0.5 X10'3 (0-0.9); EOSINOPHILS % (AUTO) 4.7 % (0-6); HEMATOCRIT 22.4 % (35.0-45.0); HEMOGLOBIN 7.3 g/dl (12.0-16.0); LYMPHOCYTES # (AUTO) 3.4 X10'3 (1.1-4.8); LYMPHOCYTES % (AUTO) 34.9 % (21-51); MEAN CORPUSCULAR HEMOGLOBIN 28.2 PG (27.0-31.0); MEAN CORPUSCULAR HGB CONC 32.6 g/dL (33.0-36.5); MEAN CORPUSCULAR VOLUME 86.4 FL (78-98); MEAN PLATELET VOLUME 8.3 FL (7.4-10.4); MONOCYTES # (AUTO) 0.7 X10'3 (0-0.9); MONOCYTES % (AUTO) 6.6 % (2-12); NEUTROPHILS # (AUTO) 5.2 X10'3 (1.8-7.7); NEUTROPHILS % (AUTO) 52.7 % (42-75); PLATELET COUNT 395 X10'3 (140-440); RED BLOOD COUNT 2.59 X10'6 (4.20-5.60); RED CELL DISTRIBUTION WIDTH 16.1 % (11.5-14.5); WHITE BLOOD COUNT 9.9 X10'3 (4.5-11.0)
[2020-10-05 04:13] LABS: ALANINE AMINOTRANSFERASE 9 U/L (12-78); ALBUMIN 2.2 G/DL (3.4-5.0); ALBUMIN/GLOBULIN RATIO 0.6 (1.1-1.5); ALKALINE PHOSPHATASE 66 IU/L (46-116); ANION GAP 5 (8-16); ASPARTATE AMINO TRANSFERASE 9 U/L (10-37); BILIRUBIN,TOTAL 0.1 MG/DL (0.1-1.0); BLOOD UREA NITROGEN 45 MG/DL (7-18); CALCIUM 7.9 MG/DL (8.5-10.1); CHLORIDE 106 MMOL/L (99-107); CREATININE 1.96 MG/DL (0.40-0.90); GLUCOSE 141 MG/DL (70-104); MAGNESIUM 1.6 MG/DL (1.5-2.4); POTASSIUM 4.6 MMOL/L (3.5-5.1); SODIUM 138 MMOL/L (135-145); TOTAL CARBON DIOXIDE 27.5 MMOL/L (24-32); TOTAL PROTEIN 5.8 G/DL (6.4-8.2); eGFR 25 ML/MIN
[2020-10-05] MEDS: heparin 10,000 units/1 ML INJ IV PRN ×2 (04:50→16:20)
--- NOTE | 2020-10-05 06:30 | NUR ---
Problems reprioritized. Patient report given, questions answered & plan of care reviewed with ELOY. Addendum: 10/05/20 at 0659 by Maciej Minor RN Amended: Links added.
[2020-10-05 07:18] VITALS: BP 160/51
--- NOTE | 2020-10-05 07:29 | NUR ---
PAGER ID: [phone] MESSAGE: Natalie RODRIGUES: would you like to proceed with CO2 angiogram? thanks [phone]
[2020-10-05] MEDS: HYDROcodone/acetaminophen 10/325mg tab PO PRN ×2 (07:56→15:41)
[2020-10-05] MEDS: acetylcysteine 200 MG/ml 4ml vial PO SCH ×2 (07:58→20:16)
[2020-10-05] MEDS: lactobacillus rhamnosus 10,000 MMU CELLS/CAPSULE PO SCH ×2 (07:58→20:13)
[2020-10-05] MEDS: aspirin 81mg tablet.DR PO SCH (07:58)
[2020-10-05] MEDS: K and/or MAG REPLACEMENT MC SCH ×2 (07:58→20:00)
--- NOTE | 2020-10-05 08:08 | NUR ---
DM Consult "A1C 6.8": Pt A1C 6.8 recent August admit; appropriate no need for DM ed at this time. Addendum: 10/05/20 at [address] Amended: Links added.
--- NOTE | 2020-10-05 09:57 | NUR ---
Heparin gtt was at 900 units/hr when I arrived on shift. It was never increased to 1,100 units/hr at [address] it was documented. Stat PTT redraw was in the therapeutic range (66) so drip will be kept at 900 units/hr. PTT redraw scheduled for 1430.
[2020-10-05] MEDS: normal saline 1000ml 1,000 ML IV SCH ×3 (11:33→22:05)
[2020-10-05 12:02] VITALS: BP 139/62
--- NOTE | 2020-10-05 14:29 | NUR ---
SPOKE WITH CHRISTINA VIA TELEPHONE. UPDATED HER ON POC.
[2020-10-05] MEDS: heparin 25,000 UNIT/250ml bag 250 ML IV SCH (16:21)
[2020-10-05 18:00] VITALS: BP 162/93
--- NOTE | 2020-10-05 18:09 | NUR ---
Problems reprioritized. Patient report given, questions answered & plan of care reviewed with SWETA REICH.
--- NOTE | 2020-10-05 18:52 | NUR ---
Patient in room CASSY 346. I have received report from DAMIR SOL and had the opportunity to ask questions and assume patient care.
[2020-10-05] MEDS: atorvastatin 10mg tablet PO SCH (20:13)
[2020-10-05] MEDS: insulin glargine (Lantus) pen - multi-dose SQ SCH (21:00)
[2020-10-05] MEDS: Melatonin 3mg tablet PO SCH (22:04)
--- NOTE | 2020-10-05 23:21 | NUR ---
PTT AT 67, WITHIN THERAPEUTIC RANGE, NO RATE CHANGE.
[2020-10-06] MEDS: HYDROcodone/acetaminophen 10/325mg tab PO PRN (00:02)
[2020-10-06 01:19] VITALS: BP 128/75
[2020-10-06 06:02] LABS: BASOPHILS # (AUTO) 0.2 X10'3 (0-0.2); BASOPHILS % (AUTO) 1.3 % (0-1); EOSINOPHILS # (AUTO) 0.5 X10'3 (0-0.9); HEMATOCRIT 24.9 % (35.0-45.0); HEMOGLOBIN 8.3 g/dl (12.0-16.0); LYMPHOCYTES # (AUTO) 3.5 X10'3 (1.1-4.8); LYMPHOCYTES % (AUTO) 27.6 % (21-51); MEAN CORPUSCULAR HEMOGLOBIN 28.9 PG (27.0-31.0); MEAN CORPUSCULAR HGB CONC 33.2 g/dL (33.0-36.5); MEAN PLATELET VOLUME 8.6 FL (7.4-10.4); MONOCYTES # (AUTO) 0.9 X10'3 (0-0.9); NEUTROPHILS # (AUTO) 7.7 X10'3 (1.8-7.7); NEUTROPHILS % (AUTO) 60.1 % (42-75); PLATELET COUNT 482 X10'3 (140-440); RED BLOOD COUNT 2.87 X10'6 (4.20-5.60); RED CELL DISTRIBUTION WIDTH 15.9 % (11.5-14.5); WHITE BLOOD COUNT 12.8 X10'3 (4.5-11.0)
--- NOTE | 2020-10-06 06:20 | NUR ---
PTT AT 55, NO RATE CHANGE
[2020-10-06 06:23] LABS: ALANINE AMINOTRANSFERASE 10 U/L (12-78); ALBUMIN 2.5 G/DL (3.4-5.0); ALBUMIN/GLOBULIN RATIO 0.6 (1.1-1.5); ALKALINE PHOSPHATASE 70 IU/L (46-116); ANION GAP 6 (8-16); ASPARTATE AMINO TRANSFERASE 9 U/L (10-37); BILIRUBIN,TOTAL 0.2 MG/DL (0.1-1.0); BLOOD UREA NITROGEN 26 MG/DL (7-18); BUN/CREATININE RATIO 18.2 (6.6-38.0); CALCIUM 8.5 MG/DL (8.5-10.1); CHLORIDE 106 MMOL/L (99-107); CREATININE 1.43 MG/DL (0.40-0.90); GLUCOSE 144 MG/DL (70-104); MAGNESIUM 1.3 MG/DL (1.5-2.4); POTASSIUM 3.9 MMOL/L (3.5-5.1); SODIUM 139 MMOL/L (135-145); TOTAL CARBON DIOXIDE 26.7 MMOL/L (24-32); TOTAL PROTEIN 6.5 G/DL (6.4-8.2); eGFR 36 ML/MIN
--- NOTE | 2020-10-06 06:45 | NUR ---
Problems reprioritized. Patient report given, questions answered & plan of care reviewed with DONAL SOL.
[2020-10-06 08:00] VITALS: BP 166/59
[2020-10-06] MEDS: K and/or MAG REPLACEMENT MC SCH ×2 (08:00→20:00)
[2020-10-06] MEDS: ceFAZolin/D5W- 1GM premix 50 ML IV SCH ×3 (09:28→23:18)
[2020-10-06] MEDS: lactobacillus rhamnosus 10,000 MMU CELLS/CAPSULE PO SCH ×2 (09:31→21:45)
[2020-10-06] MEDS: aspirin 81mg tablet.DR PO SCH (09:31)
[2020-10-06] MEDS: acetylcysteine 200 MG/ml 4ml vial PO SCH ×2 (09:38→21:46)
[2020-10-06] MEDS: normal saline 1000ml 1,000 ML IV SCH (09:40)
[2020-10-06] MEDS: HYDROmorphone inj. 0.5 MG/0.5 ML DISP.SYRIN IV PRN (09:46)
[2020-10-06 11:00] VITALS: BP 186/72
--- NOTE | 2020-10-06 11:07 | NUR ---
HEPARIN PAUSED FOR LAB
--- NOTE | 2020-10-06 11:20 | NUR ---
Hospitalist made aware of HTN. States to continue to monitor for now. No other new orders.
[2020-10-06] MEDS: heparin 10,000 units/1 ML INJ IV PRN (12:52)
[2020-10-06] MEDS: heparin 25,000 UNIT/250ml bag 250 ML IV SCH ×2 (12:53→22:09)
[2020-10-06 13:10] VITALS: BP 154/73
--- NOTE | 2020-10-06 13:15 | NUR ---
PT. TAKEN TO ANGIO FOR ANGIOGRAM
[2020-10-06] MEDS ORDERED: diphenhydrAMINE 50 mg/ml inj ONE (14:37)
[2020-10-06] MEDS ORDERED: LIDOcaine 1%/PF 5ML 10 MG/ML VIAL ONE (14:37)
--- NOTE | 2020-10-06 14:37 | NUR ---
PAGER ID: [phone] MESSAGE: Marilyn stone 346a MAG low 1.3 in today's labs. No protocol/mag ordered. Jimena [phone]
[2020-10-06] MEDS ORDERED: heparin 1,000 UNITS/NS 500ml 500 ML ONE (14:38)
[2020-10-06] MEDS ORDERED: fentaNYL/PF 50MCG/1 ML 2ML syringe ONE (14:38)
[2020-10-06] MEDS ORDERED: iohexol 300 MG/1 ML 50ml polymer ONE (14:38)
--- NOTE | 2020-10-06 15:51 | NUR ---
Pt. returned from angiogram. Instructions to hold heparin for 6 hours and lay pt. flat until 1914 were given to bellows charger assembler. Heparin already disconnected.
--- NOTE | 2020-10-06 15:53 | NUR ---
city superintendent of [employer] STATES SA02 88% ON RA UPON ARRIVAL TO FLOOR FROM ANGIO. PLACED ON 2LPM 02 VIA N/C
[2020-10-06] MEDS ORDERED: magnesium 4gm in 100ml NS 100 ML IV PRN (16:20)
[2020-10-06] MEDS ORDERED: potassium Cl 20 mEq SR tablet PO PRN ×2 (16:20)
[2020-10-06] MEDS ORDERED: magnesium Cl slow-release 64mg tablet PO PRN (16:20)
[2020-10-06] MEDS ORDERED: potassium Cl 40MEQ/1/2NS 520ml 520 ML IV PRN (16:20)
--- NOTE | 2020-10-06 19:00 | NUR ---
REPORT GIVEN TO PALOMA DOW RN. ONCOMING RN AWARE HEPARIN IS CURRENTLY ON HOLD UNTIL 2114 AND PT. IS TO REMAIN FLAT UNTIL 1914. RADIOLOGY NEEDS TO BE PAGED FOR CXR AND MAG REPLACEMENT NEEDED.
--- NOTE | 2020-10-06 19:10 | NUR ---
Patient in room CASSY 346. I have received report from DONAL SOL and had the opportunity to ask questions and assume patient care.
[2020-10-06 20:00] VITALS: BP 160/82
--- NOTE | 2020-10-06 21:30 | NUR ---
CALLED PHARMACIST AND ASK ABOUT STARTING BACK HEPARIN DRIP WHICH WAS STOPPED FOR MORE THAN 6 HOURS AND SAID TO START WHERE IT WAS.
[2020-10-06] MEDS: atorvastatin 10mg tablet PO SCH (21:45)
[2020-10-06] MEDS: Melatonin 3mg tablet PO SCH (21:45)
[2020-10-06] MEDS: insulin glargine (Lantus) pen - multi-dose SQ SCH (22:10)
[2020-10-07] VITALS (18 sets, daily range): BP systolic 114–200; BP diastolic 42–90
[2020-10-07] MEDS: normal saline 1000ml 1,000 ML IV SCH ×2 (05:56→22:47)
[2020-10-07 06:44] LABS: BASOPHILS # (AUTO) 0.1 X10'3 (0-0.2); BASOPHILS % (AUTO) 0.7 % (0-1); EOSINOPHILS # (AUTO) 0.5 X10'3 (0-0.9); EOSINOPHILS % (AUTO) 4.1 % (0-6); HEMATOCRIT 25.5 % (35.0-45.0); HEMOGLOBIN 8.3 g/dl (12.0-16.0); LYMPHOCYTES # (AUTO) 2.3 X10'3 (1.1-4.8); LYMPHOCYTES % (AUTO) 18.1 % (21-51); MEAN CORPUSCULAR HGB CONC 32.3 g/dL (33.0-36.5); MEAN CORPUSCULAR VOLUME 86.7 FL (78-98); MEAN PLATELET VOLUME 8.3 FL (7.4-10.4); MONOCYTES # (AUTO) 0.8 X10'3 (0-0.9); NEUTROPHILS # (AUTO) 9.2 X10'3 (1.8-7.7); NEUTROPHILS % (AUTO) 71.1 % (42-75); PLATELET COUNT 479 X10'3 (140-440); RED BLOOD COUNT 2.94 X10'6 (4.20-5.60); RED CELL DISTRIBUTION WIDTH 16.1 % (11.5-14.5)
[2020-10-07 07:01] LABS: ALBUMIN 2.5 G/DL (3.4-5.0); ALBUMIN/GLOBULIN RATIO 0.6 (1.1-1.5); ALKALINE PHOSPHATASE 69 IU/L (46-116); ANION GAP 11 (8-16); ASPARTATE AMINO TRANSFERASE 10 U/L (10-37); BILIRUBIN,TOTAL 0.2 MG/DL (0.1-1.0); BLOOD UREA NITROGEN 19 MG/DL (7-18); BUN/CREATININE RATIO 14.2 (6.6-38.0); CHLORIDE 107 MMOL/L (99-107); CREATININE 1.34 MG/DL (0.40-0.90); GLUCOSE 147 MG/DL (70-104); MAGNESIUM 3.3 MG/DL (1.5-2.4); SODIUM 141 MMOL/L (135-145); TOTAL CARBON DIOXIDE 22.8 MMOL/L (24-32); TOTAL PROTEIN 6.6 G/DL (6.4-8.2); eGFR 39 ML/MIN
[2020-10-07 07:30] LABS: ALANINE AMINOTRANSFERASE < 6 U/L (12-78)
--- NOTE | 2020-10-07 07:32 | NUR ---
Pt. states vaccinated for COVID but no card on her. Previously have been able to research vaccination on public record. Contacted Raghav in infection but he states he is not working today but will notify Komal to shaheed bowser of primary RN.
--- NOTE | 2020-10-07 07:33 | NUR ---
Contacted Karla in regards of when to hold heparin drip before sx and if to give ASA.
[2020-10-07] MEDS: lactobacillus rhamnosus 10,000 MMU CELLS/CAPSULE PO SCH ×2 (07:52→23:51)
[2020-10-07] MEDS: K and/or MAG REPLACEMENT MC SCH ×2 (07:52→20:00)
[2020-10-07] MEDS: acetylcysteine 200 MG/ml 4ml vial PO SCH (07:53)
[2020-10-07] MEDS: ceFAZolin/D5W- 1GM premix 50 ML IV SCH ×2 (07:53→15:27)
[2020-10-07] MEDS: aspirin 81mg tablet.DR PO SCH (07:53)
[2020-10-07] MEDS: heparin 10,000 units/1 ML INJ IV PRN (08:00)
[2020-10-07] MEDS: heparin 25,000 UNIT/250ml bag 250 ML IV SCH (08:02)
--- NOTE | 2020-10-07 09:35 | NUR ---
Initial: Pt with PVD admit with occlusion of the LLE and gangrenous left great toe. 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 Left great to is necrotic but closed per WOC notes. Pt on a CHO controlled diet with 100% PO intake first two meals which declined following meals, averaging 55% PO intake throughout LOS. Despite active diet order pt NPO today for surgery per EMR. LBM 10/04, with PRN bowel care available. No appropriate nutrition intervention at this time in view of NPO status. Will continue to follow closely and make recommendations as appropriate. Recommendations: 1) Resume CHO controlled diet post-op 2) Monitor need for additional protein/ONS post-op 3) Routine bowel care 4) Weekly scaled weights Addendum: 10/07/20 at [address] Amended: Links added.
--- NOTE | 2020-10-07 11:17 | NUR ---
Per charge Karla called and states to hold heparin at 1200.
--- NOTE | 2020-10-07 13:32 | NUR ---
Pt. in severe pain left leg. Pt. becomes more forgetful on pain medication. Notified OR relief charge nurse that if pain medication is given pt may not be able to consent for herself but that she has authorized her neighbor Soledad to make decisions for her. Mateo phone number is is nursing SBAR. Charge OR stated to ask Karla. Called Karla's cell phone, left message with return contact. Will wait for a few minutes and then administer pain medication per order.
[2020-10-07] MEDS: HYDROmorphone inj. 0.5 MG/0.5 ML DISP.SYRIN IV PRN ×2 (13:46→22:39)
--- NOTE | 2020-10-07 16:55 | NUR ---
called report to recovery
--- NOTE | 2020-10-07 17:05 | NUR ---
Pt. escorted to OR by 2 OR staff. Soledad and coater operator insulation board went down to OR for consent purposes as well.
[2020-10-07] MEDS ORDERED: LIDOcaine 1% (10mg/ml) 2ml vial ONE (17:16)
[2020-10-07] MEDS ORDERED: heparin 10,000 units/1 ML INJ ONE (17:16)
[2020-10-07] MEDS ORDERED: fentaNYL/PF 50MCG/1 ML 2ML syringe ONE ×2 (17:55→19:06)
[2020-10-07] MEDS ORDERED: propofol inj 20 ML IV ONE (17:56)
[2020-10-07] MEDS ORDERED: LIDOcaine 2% (20mg/ml) 5ml vial ONE ×2 (17:56→20:43)
--- NOTE | 2020-10-07 18:25 | NUR ---
Gave report to Nannette Brunson RN.
[2020-10-07] MEDS ORDERED: HYDROmorphone/PF 0.2 MG/ML SYRINGE IV PRN ×2 (19:15)
[2020-10-07] MEDS ORDERED: morphine 2 MG/ML inj. syringe IV PRN (19:15)
[2020-10-07] MEDS ORDERED: ringers solution, lacted 1,000 ML IV SCH (19:15)
[2020-10-07] MEDS ORDERED: ondansetron/PF 4mg/2ml inj IV PRN (19:15)
[2020-10-07] MEDS ORDERED: rocuronium 10mg/ml inj IV ONE (20:43)
[2020-10-07] MEDS ORDERED: neostigmine methylsulfate 1 MG/ML 10ml vial ONE (20:43)
[2020-10-07] MEDS ORDERED: glycopyrrolate 0.2mg/ml inj ONE (20:43)
[2020-10-07] MEDS ORDERED: sugammadex 200mg/2ml injection IV ONE (20:44)
[2020-10-07] MEDS ORDERED: labetalol 20mg/4ml (5mg/ml) syringe IV ONE (20:46)
[2020-10-07] MEDS ORDERED: ePHEDrine 50MG/ML INJ. ONE ×2 (20:46→21:16)
[2020-10-07] MEDS ORDERED: heparin 1,000unit/ml 10ml vial 10 ML ONE (20:46)
[2020-10-07] MEDS ORDERED: phenylephrine 10mg/ml inj. ONE (20:46)
--- NOTE | 2020-10-07 20:50 | NUR ---
ADMITTED TO PACU FROM OR ACCOMPANIED BY ANESTHESIA. INTIAL PHYSICAL ASSESSMENT DONE AND RECORDED. REPORT RECEIVED FROM ANESTHESIA. ALL PRESSURE LINES AIR ZEROED AND CALIBRATED WITH GOOD WAVE FORM. MEDICATED FOR PAIN ON ARRIVAL WITH MORPHINE ORDERED BY DR. AVEDNANO. DOPPLER PULSE LEFT DP, PCXR DONE.
[2020-10-07] MEDS: insulin glargine (Lantus) pen - multi-dose SQ SCH (21:00)
--- NOTE | 2020-10-07 21:00 | NUR ---
Per PACU report, blood sugar was 162 on arrival to PACU. Pt arrived to ICU @ 2200.
[2020-10-07] MEDS ORDERED: morphine 4 MG/ML inj SYRINge ONE (21:01)
[2020-10-07] MEDS ORDERED: hydrALAZINE 20mg/ml inj. IV ONE (21:17)
--- NOTE | 2020-10-07 22:15 | NUR ---
PACU DISCHARGE CRITERIA MET, REPORT GIVEN TO ICU. DENIES PAIN OR DISCOMFORT. PT IS STABLE AND ADEQUATELY RECOVERED FROM ANESTHESIA. PT HAS STABLE AIRWAY PATENCY, RESPIRATORY FUNCTION TO INCLUDE RESPIRATORY RATE AND O2 SAT. HEART RATE, BLOOD PRESSURE STABLE AND HYDRATION ADEQUATE. MENTAL STATUS IS APPROPRIATE. PAIN AND NAUSEA CONTROLLED. REFER TO PACU SPREADSHEET FOR VITAL SIGNS.
[2020-10-07] MEDS: atorvastatin 10mg tablet PO SCH (23:51)
[2020-10-07] MEDS: Melatonin 3mg tablet PO SCH (23:51)
[2020-10-08] VITALS (26 sets, daily range): BP systolic 104–187; BP diastolic 32–87
[2020-10-08] MEDS ORDERED: ceFAZolin inj. 1,000 MG in dextrose 5%-water 50ml 50 ML IV SCH ×2
[2020-10-08] MEDS: ceFAZolin/D5W- 1GM premix 50 ML IV SCH ×3 (01:33→16:06)
[2020-10-08] MEDS: HYDROcodone/acetaminophen 10/325mg tab PO PRN ×4 (04:00→18:01)
[2020-10-08 04:32] LABS: BASOPHILS # (AUTO) 0.1 X10'3 (0-0.2); BASOPHILS % (AUTO) 0.8 % (0-1); EOSINOPHILS # (AUTO) 0.2 X10'3 (0-0.9); EOSINOPHILS % (AUTO) 1.3 % (0-6); HEMATOCRIT 28.6 % (35.0-45.0); HEMOGLOBIN 9.6 g/dl (12.0-16.0); LYMPHOCYTES # (AUTO) 2.6 X10'3 (1.1-4.8); LYMPHOCYTES % (AUTO) 13.8 % (21-51); MEAN CORPUSCULAR HGB CONC 33.4 g/dL (33.0-36.5); MEAN CORPUSCULAR VOLUME 86.7 FL (78-98); MONOCYTES # (AUTO) 1.5 X10'3 (0-0.9); NEUTROPHILS # (AUTO) 14.3 X10'3 (1.8-7.7); NEUTROPHILS % (AUTO) 76.1 % (42-75); PLATELET COUNT 392 X10'3 (140-440); WHITE BLOOD COUNT 18.7 X10'3 (4.5-11.0)
[2020-10-08 04:44] LABS: ALANINE AMINOTRANSFERASE 7 U/L (12-78); ALBUMIN 2.2 G/DL (3.4-5.0); ALBUMIN/GLOBULIN RATIO 0.6 (1.1-1.5); ALKALINE PHOSPHATASE 65 IU/L (46-116); ANION GAP 8 (8-16); ASPARTATE AMINO TRANSFERASE 12 U/L (10-37); BILIRUBIN,TOTAL 0.2 MG/DL (0.1-1.0); BLOOD UREA NITROGEN 15 MG/DL (7-18); BUN/CREATININE RATIO 13.2 (6.6-38.0); CALCIUM 7.5 MG/DL (8.5-10.1); CHLORIDE 109 MMOL/L (99-107); CREATININE 1.14 MG/DL (0.40-0.90); GLUCOSE 164 MG/DL (70-104); MAGNESIUM 1.7 MG/DL (1.5-2.4); POTASSIUM 3.8 MMOL/L (3.5-5.1); SODIUM 141 MMOL/L (135-145); TOTAL CARBON DIOXIDE 23.7 MMOL/L (24-32); TOTAL PROTEIN 5.7 G/DL (6.4-8.2); eGFR 46 ML/MIN
[2020-10-08] MEDS: K and/or MAG REPLACEMENT MC SCH ×2 (08:00→20:00)
[2020-10-08] MEDS: aspirin 81mg tablet.DR PO SCH (08:51)
[2020-10-08] MEDS: normal saline 1000ml 1,000 ML IV SCH ×2 (08:51→19:20)
[2020-10-08] MEDS: lactobacillus rhamnosus 10,000 MMU CELLS/CAPSULE PO SCH ×2 (08:52→21:37)
--- NOTE | 2020-10-08 14:48 | NUR ---
Dr. Chirinos at bedside rounding. notified patient's urine output 20-40ml/hour; orders to increase NS infusion to 100ml/hour.
--- NOTE | 2020-10-08 18:16 | NUR ---
Problems reprioritized. Patient report given, questions answered & plan of care reviewed with Soledad SOL.
--- NOTE | 2020-10-08 20:25 | NUR ---
Patient in room ICU 2045. I have received report from Soledad SOL and had the opportunity to ask questions and assume patient care.
[2020-10-08] MEDS: insulin glargine (Lantus) pen - multi-dose SQ SCH (21:00)
[2020-10-08] MEDS: atorvastatin 10mg tablet PO SCH (21:37)
[2020-10-08] MEDS: Melatonin 3mg tablet PO SCH (21:37)
--- NOTE | 2020-10-08 23:51 | NUR ---
Problems reprioritized. Patient report given, questions answered & plan of care reviewed with Soledad SOL.
[2020-10-09] VITALS (29 sets, daily range): BP systolic 145–205; BP diastolic 53–90
[2020-10-09] MEDS: ceFAZolin/D5W- 1GM premix 50 ML IV SCH ×4 (00:47→23:56)
[2020-10-09 03:30] LABS: BASOPHILS # (AUTO) 0.1 X10'3 (0-0.2); BASOPHILS % (AUTO) 0.8 % (0-1); EOSINOPHILS # (AUTO) 0.4 X10'3 (0-0.9); EOSINOPHILS % (AUTO) 3.4 % (0-6); HEMATOCRIT 26.8 % (35.0-45.0); HEMOGLOBIN 8.8 g/dl (12.0-16.0); LYMPHOCYTES # (AUTO) 1.8 X10'3 (1.1-4.8); LYMPHOCYTES % (AUTO) 13.6 % (21-51); MEAN CORPUSCULAR HEMOGLOBIN 28.7 PG (27.0-31.0); MEAN CORPUSCULAR HGB CONC 32.8 g/dL (33.0-36.5); MEAN CORPUSCULAR VOLUME 87.5 FL (78-98); MONOCYTES # (AUTO) 1.4 X10'3 (0-0.9); MONOCYTES % (AUTO) 10.6 % (2-12); NEUTROPHILS # (AUTO) 9.5 X10'3 (1.8-7.7); NEUTROPHILS % (AUTO) 71.6 % (42-75); PLATELET COUNT 385 X10'3 (140-440); RED BLOOD COUNT 3.06 X10'6 (4.20-5.60); RED CELL DISTRIBUTION WIDTH 14.9 % (11.5-14.5); WHITE BLOOD COUNT 13.2 X10'3 (4.5-11.0)
[2020-10-09 03:40] LABS: ALBUMIN 1.9 G/DL (3.4-5.0); ANION GAP 8 (8-16); BLOOD UREA NITROGEN 13 MG/DL (7-18); CALCIUM 7.4 MG/DL (8.5-10.1); CHLORIDE 108 MMOL/L (99-107); CREATININE 1.18 MG/DL (0.40-0.90); GLUCOSE 145 MG/DL (70-104); MAGNESIUM 1.6 MG/DL (1.5-2.4); POTASSIUM 3.9 MMOL/L (3.5-5.1); SODIUM 140 MMOL/L (135-145); TOTAL CARBON DIOXIDE 24.3 MMOL/L (24-32); eGFR 45 ML/MIN
[2020-10-09] MEDS: hydrALAZINE 20mg/ml inj. IV PRN ×3 (05:55→19:44)
[2020-10-09] MEDS: normal saline 1000ml 1,000 ML IV SCH ×2 (05:55→18:56)
--- NOTE | 2020-10-09 07:00 | NUR ---
Patient in room ICU 2045. I have received report from carmen jansen and had the opportunity to ask questions and assume patient care.
[2020-10-09] MEDS: lactobacillus rhamnosus 10,000 MMU CELLS/CAPSULE PO SCH ×2 (08:49→20:41)
[2020-10-09] MEDS: aspirin 81mg tablet.DR PO SCH (08:49)
[2020-10-09] MEDS: K and/or MAG REPLACEMENT MC SCH ×2 (08:50→20:00)
[2020-10-09] MEDS: HYDROcodone/acetaminophen 5mg/325mg tablet PO PRN (12:17)
[2020-10-09] MEDS ORDERED: LORazepam 2 mg/ml vial IV PRN (12:40)
--- NOTE | 2020-10-09 18:30 | NUR ---
Problems reprioritized. Patient report given, questions answered & plan of care reviewed with inderjit morales.
[2020-10-09] MEDS: HYDROcodone/acetaminophen 10/325mg tab PO PRN ×2 (18:56→23:00)
[2020-10-09] MEDS: atorvastatin 10mg tablet PO SCH (20:41)
[2020-10-09] MEDS: Melatonin 3mg tablet PO SCH (20:41)
[2020-10-09] MEDS: insulin glargine (Lantus) pen - multi-dose SQ SCH (20:48)
[2020-10-10] VITALS (22 sets, daily range): BP systolic 136–190; BP diastolic 57–79
[2020-10-10 02:57] LABS: BASOPHILS # (AUTO) 0.1 X10'3 (0-0.2); BASOPHILS % (AUTO) 0.4 % (0-1); EOSINOPHILS # (AUTO) 0.2 X10'3 (0-0.9); EOSINOPHILS % (AUTO) 1.1 % (0-6); HEMATOCRIT 27.5 % (35.0-45.0); LYMPHOCYTES # (AUTO) 2.2 X10'3 (1.1-4.8); LYMPHOCYTES % (AUTO) 13.1 % (21-51); MEAN CORPUSCULAR HEMOGLOBIN 29.1 PG (27.0-31.0); MEAN CORPUSCULAR HGB CONC 32.8 g/dL (33.0-36.5); MEAN CORPUSCULAR VOLUME 88.6 FL (78-98); MEAN PLATELET VOLUME 7.9 FL (7.4-10.4); MONOCYTES # (AUTO) 2.2 X10'3 (0-0.9); NEUTROPHILS # (AUTO) 12.3 X10'3 (1.8-7.7); NEUTROPHILS % (AUTO) 72.4 % (42-75); PLATELET COUNT 418 X10'3 (140-440)
[2020-10-10] MEDS: hydrALAZINE 20mg/ml inj. IV PRN ×2 (03:00→09:36)
[2020-10-10 03:05] LABS: ANION GAP 10 (8-16); BLOOD UREA NITROGEN 11 MG/DL (7-18); BUN/CREATININE RATIO 9.4 (6.6-38.0); CALCIUM 7.9 MG/DL (8.5-10.1); CHLORIDE 107 MMOL/L (99-107); CREATININE 1.17 MG/DL (0.40-0.90); GLUCOSE 148 MG/DL (70-104); MAGNESIUM 1.5 MG/DL (1.5-2.4); POTASSIUM 3.3 MMOL/L (3.5-5.1); SODIUM 139 MMOL/L (135-145); eGFR 45 ML/MIN
--- NOTE | 2020-10-10 06:45 | NUR ---
Patient in room ICU 2045. I have received report from SWETA VASQUEZ, and had the opportunity to ask questions and assume patient care.
[2020-10-10 06:52] LABS: PLATELET ESTIMATE NORMAL; TOTAL CELLS COUNTED 100
[2020-10-10 07:42] LABS: ISTAT K 3.5 mmol/L (3.5-5.1)
[2020-10-10 07:43] LABS: ISTAT CREATININE 1.2 mg/dL (0.6-1.1); POC BUN/CREATININE RATIO 12.5 (6.6-38.0)
[2020-10-10 07:44] LABS: ISTAT IONIZED CALCIUM 1.17 mmol/L (1.03-1.32)
[2020-10-10 07:49] LABS: ISTAT K 3.4 mmol/L (3.5-5.1)
[2020-10-10 07:50] LABS: ISTAT CREATININE 1.1 mg/dL (0.6-1.1); ISTAT IONIZED CALCIUM 1.18 mmol/L (1.03-1.32); POC BUN/CREATININE RATIO 13.6 (6.6-38.0)
[2020-10-10] MEDS: K and/or MAG REPLACEMENT MC SCH ×2 (08:00→21:05)
[2020-10-10] MEDS: ceFAZolin/D5W- 1GM premix 50 ML IV SCH ×2 (08:03→15:44)
[2020-10-10] MEDS: magnesium hydroxide 30ml (MOM) UD suspension PO PRN (08:04)
[2020-10-10] MEDS: lactobacillus rhamnosus 10,000 MMU CELLS/CAPSULE PO SCH ×2 (08:04→21:06)
[2020-10-10] MEDS: aspirin 81mg tablet.DR PO SCH (08:04)
[2020-10-10 08:08] LABS: ISTAT HGB 5.4 g/dl (12.0-16.0)
[2020-10-10 08:08] LABS: ISTAT HGB 6.1 g/dl (12.0-16.0)
[2020-10-10] MEDS ORDERED: enalaprilat dihydrate 2.5mg/2ml vial IV PRN (08:30)
[2020-10-10] MEDS ORDERED: magnesium 4gm in 100ml NS 100 ML IV PRN (09:50)
[2020-10-10] MEDS ORDERED: potassium Cl 20 mEq SR tablet PO PRN (09:50)
[2020-10-10] MEDS ORDERED: potassium Cl 40MEQ/1/2NS 520ml 520 ML IV PRN (09:50)
[2020-10-10] MEDS ORDERED: magnesium 2GM in 50ml NS 50 ML IV PRN (09:50)
[2020-10-10] MEDS ORDERED: magnesium Cl slow-release 64mg tablet PO PRN (09:50)
[2020-10-10] MEDS: potassium Cl 20 mEq SR tablet PO PRN ×2 (10:08→17:42)
--- NOTE | 2020-10-10 13:18 | NUR ---
PAGED DR. RODRÍGUEZ TO INFORM PT HAS HIGH BP. HYDRAZALINE AND VASOTEC GIVEN.
[2020-10-10] MEDS: HYDROcodone/acetaminophen 10/325mg tab PO PRN ×2 (13:30→17:42)
[2020-10-10] MEDS ORDERED: magnesium citrate 296ml oral solution PO ONE (15:35)
--- NOTE | 2020-10-10 18:25 | NUR ---
Problems reprioritized. Patient report given, questions answered & plan of care reviewed with SWETA SHELTON.
--- NOTE | 2020-10-10 18:57 | NUR ---
ATTEMPTS WERE MADE TO FIND BETADINE FOR WOUND CARE IN ICU WITHOUT SUCCESS. PHARMACY AND MATERIALS PHONED THE DAY WENT ON. PASSED ON TO NOC NURSE THAT WOUND CARE WASN'T DONE D/T LACK OF BETADINE.
[2020-10-10] MEDS: insulin glargine (Lantus) pen - multi-dose SQ SCH (21:00)
--- NOTE | 2020-10-10 21:00 | NUR ---
I gave pt her Mag Citrate and she drank 1/2 of the dose and refused the rest.
[2020-10-10] MEDS: atorvastatin 10mg tablet PO SCH (21:06)
[2020-10-10] MEDS: Melatonin 3mg tablet PO SCH (21:06)
[2020-10-10] MEDS: metoprolol tartrate 25mg tablet PO SCH (21:06)
[2020-10-10] MEDS: enoxaparin 40mg/0.4ml syringe SUBCUT SCH (21:07)
--- NOTE | 2020-10-10 21:25 | NUR ---
Started bladder training in preparation to removing langley catheter.
[2020-10-11] MEDS: ceFAZolin/D5W- 1GM premix 50 ML IV SCH ×3 (00:09→17:06)
[2020-10-11] MEDS: HYDROmorphone inj. 0.5 MG/0.5 ML DISP.SYRIN IV PRN (03:59)
[2020-10-11] MEDS: HYDROcodone/acetaminophen 10/325mg tab PO PRN (05:16)
[2020-10-11 05:55] LABS: BASOPHILS # (AUTO) 0.1 X10'3 (0-0.2); BASOPHILS % (AUTO) 0.5 % (0-1); EOSINOPHILS # (AUTO) 0.5 X10'3 (0-0.9); EOSINOPHILS % (AUTO) 3.1 % (0-6); HEMATOCRIT 26.9 % (35.0-45.0); HEMOGLOBIN 8.7 g/dl (12.0-16.0); LYMPHOCYTES # (AUTO) 2.5 X10'3 (1.1-4.8); LYMPHOCYTES % (AUTO) 15.3 % (21-51); MEAN CORPUSCULAR HEMOGLOBIN 28.5 PG (27.0-31.0); MEAN CORPUSCULAR HGB CONC 32.5 g/dL (33.0-36.5); MEAN CORPUSCULAR VOLUME 87.8 FL (78-98); MEAN PLATELET VOLUME 8.2 FL (7.4-10.4); MONOCYTES # (AUTO) 1.7 X10'3 (0-0.9); MONOCYTES % (AUTO) 10.4 % (2-12); NEUTROPHILS # (AUTO) 11.6 X10'3 (1.8-7.7); NEUTROPHILS % (AUTO) 70.7 % (42-75); PLATELET COUNT 462 X10'3 (140-440); RED BLOOD COUNT 3.06 X10'6 (4.20-5.60); RED CELL DISTRIBUTION WIDTH 15.4 % (11.5-14.5); WHITE BLOOD COUNT 16.4 X10'3 (4.5-11.0)
[2020-10-11 05:56] LABS: ALBUMIN 1.9 G/DL (3.4-5.0); ANION GAP 7 (8-16); BLOOD UREA NITROGEN 12 MG/DL (7-18); BUN/CREATININE RATIO 10.9 (6.6-38.0); CALCIUM 7.8 MG/DL (8.5-10.1); CHLORIDE 108 MMOL/L (99-107); GLUCOSE 130 MG/DL (70-104); POTASSIUM 4.8 MMOL/L (3.5-5.1); SODIUM 138 MMOL/L (135-145); TOTAL CARBON DIOXIDE 23.4 MMOL/L (24-32); eGFR 48 ML/MIN
--- NOTE | 2020-10-11 06:50 | NUR ---
Problems reprioritized. Patient report given, questions answered & plan of care reviewed with KIMMY. Addendum: 10/11/20 at 0650 by Maciej Minro RN Amended: Links added.
[2020-10-11] MEDS: K and/or MAG REPLACEMENT MC SCH ×2 (07:57→20:36)
[2020-10-11 08:00] VITALS: BP 172/65
[2020-10-11] MEDS: aspirin 81mg tablet.DR PO SCH (08:38)
[2020-10-11] MEDS: lactobacillus rhamnosus 10,000 MMU CELLS/CAPSULE PO SCH ×2 (08:38→20:26)
[2020-10-11] MEDS: metoprolol tartrate 25mg tablet PO SCH ×2 (08:39→20:26)
[2020-10-11 11:30] VITALS: BP 155/68
--- NOTE | 2020-10-11 15:10 | NUR ---
Reassessment: Pt s/p left above the knee femoral to popliteal bypass 10/07 per MD note, with a wound VAC to left groin per WOC notes. Currently documented as A/O x 2 and confused. Patient's PO intake has declined to 0-25% PO intake not meeting estimated nutrient needs. Noted LBM 10/04, constipation likely impacting appetite/PO intake. Pt received first dose of PRN MoM 10/10 and one time dose of Mag-Citrate 10/10 though only consumed half of it per rivet driver. D/w dietary to send power pudding with next meal to further assist with bowel regularity. If PO intake does not improve following resolution of constipation pt would benefit from ONS. Will continue to follow closely. Recommendations: 1) Continue CHO controlled diet; encourage PO intake 2) Monitor need for additional protein/ONS 3) Routine bowel care 4) Weekly scaled weights Addendum: 10/11/20 at [address] Amended: Links added.
--- NOTE | 2020-10-11 17:00 | NUR ---
Patient report given to Love SOL, all questions answered. Pt awake in bed watching tv.
[2020-10-11] MEDS: HYDROcodone/acetaminophen 5mg/325mg tablet PO PRN (17:54)
[2020-10-11 18:00] VITALS: BP 185/72
--- NOTE | 2020-10-11 19:00 | NUR ---
Pt. refused dinner but offered a substitute but still pt. declined. Addendum: 10/12/20 at 0213 by Love Mixon RN Amended: Links added.
--- NOTE | 2020-10-11 19:20 | NUR ---
Pt. laying in bed appears comfort at this time. No c/o pain at this time. Bed in low position sitter for pt. A keeping an eye on pt. also. Bed in low position. Addendum: 10/12/20 at 0655 by Love Mixon RN Amended: Links added.
--- NOTE | 2020-10-11 20:00 | NUR ---
Pt.awake A & O at this time. Rt. groin wound with a Wound vac in place draining to gravity with no drainage noted in tubing or collecting chamber. Left inner thigh with stapled wound covered with an island drsg; surrounding skin without s/s complications at this time. Bilateral heels with foam dressing and floated on pillows. Call light within reach and bed in low position. Addendum: 10/12/20 at 0728 by Love Mixon RN Amended: Links added.
[2020-10-11] MEDS: enoxaparin 40mg/0.4ml syringe SUBCUT SCH (20:24)
[2020-10-11] MEDS: Melatonin 3mg tablet PO SCH (20:25)
[2020-10-11] MEDS: atorvastatin 10mg tablet PO SCH (20:26)
[2020-10-11] MEDS: hydrALAZINE 20mg/ml inj. IV PRN (20:30)
[2020-10-11] MEDS: insulin glargine (Lantus) pen - multi-dose SQ SCH (21:00)
--- NOTE | 2020-10-11 22:00 | NUR ---
Discontinued internal jugular IV without incident. Applied gauze and covered with tegaderm dresssing. Addendum: 10/12/20 at 0202 by Love Mixon RN Amended: Links added.
[2020-10-12] VITALS: BP 175/72
[2020-10-12] MEDS: ceFAZolin/D5W- 1GM premix 50 ML IV SCH ×3 (00:57→16:35)
[2020-10-12] MEDS: normal saline 1000ml 1,000 ML IV SCH (00:58)
--- NOTE | 2020-10-12 06:00 | NUR ---
Problems reprioritized. Patient report given, questions answered & plan of care reviewed with Shannan SOL. Addendum: 10/12/20 at 0751 by Love Mixon RN Amended: Links added.
[2020-10-12 07:00] VITALS: BP 202/82
--- NOTE | 2020-10-12 07:01 | NUR ---
Patient in room CASSY 355. I have received report from SWETA Aleman and had the opportunity to ask questions and assume patient care.
[2020-10-12] MEDS: K and/or MAG REPLACEMENT MC SCH ×2 (08:00→20:44)
[2020-10-12] MEDS: aspirin 81mg tablet.DR PO SCH (08:46)
[2020-10-12] MEDS: metoprolol tartrate 25mg tablet PO SCH ×2 (08:47→20:09)
[2020-10-12] MEDS: lactobacillus rhamnosus 10,000 MMU CELLS/CAPSULE PO SCH ×2 (08:49→20:08)
[2020-10-12] MEDS ORDERED: metoprolol tartrate 25mg tablet PO ONE (09:00)
[2020-10-12 09:51] LABS: BASOPHILS # (AUTO) 0.1 X10'3 (0-0.2); EOSINOPHILS # (AUTO) 0.4 X10'3 (0-0.9); EOSINOPHILS % (AUTO) 2.9 % (0-6); HEMATOCRIT 29.8 % (35.0-45.0); LYMPHOCYTES # (AUTO) 1.6 X10'3 (1.1-4.8); LYMPHOCYTES % (AUTO) 12.4 % (21-51); MEAN CORPUSCULAR HEMOGLOBIN 28.7 PG (27.0-31.0); MEAN CORPUSCULAR HGB CONC 33.5 g/dL (33.0-36.5); MEAN CORPUSCULAR VOLUME 85.8 FL (78-98); MEAN PLATELET VOLUME 7.4 FL (7.4-10.4); MONOCYTES # (AUTO) 1.1 X10'3 (0-0.9); MONOCYTES % (AUTO) 8.8 % (2-12); NEUTROPHILS # (AUTO) 9.7 X10'3 (1.8-7.7); NEUTROPHILS % (AUTO) 74.9 % (42-75); PLATELET COUNT 526 X10'3 (140-440); RED BLOOD COUNT 3.47 X10'6 (4.20-5.60); RED CELL DISTRIBUTION WIDTH 15.5 % (11.5-14.5)
[2020-10-12 10:00] LABS: ALBUMIN 1.8 G/DL (3.4-5.0); ANION GAP 10 (8-16); BLOOD UREA NITROGEN 14 MG/DL (7-18); BUN/CREATININE RATIO 12.8 (6.6-38.0); CALCIUM 8.1 MG/DL (8.5-10.1); CHLORIDE 103 MMOL/L (99-107); CREATININE 1.09 MG/DL (0.40-0.90); GLUCOSE 128 MG/DL (70-104); SODIUM 136 MMOL/L (135-145); TOTAL CARBON DIOXIDE 23.1 MMOL/L (24-32); eGFR 49 ML/MIN
[2020-10-12 11:12] VITALS: BP 160/56
[2020-10-12] MEDS: HYDROcodone/acetaminophen 5mg/325mg tablet PO PRN (13:00)
[2020-10-12] MEDS: NIFEdipine XL 30mg tablet PO SCH (16:35)
--- NOTE | 2020-10-12 18:54 | NUR ---
Problems reprioritized. Patient report given, questions answered & plan of care reviewed with SWETA Reyes.
[2020-10-12] MEDS: atorvastatin 10mg tablet PO SCH (20:08)
[2020-10-12] MEDS: Melatonin 3mg tablet PO SCH (20:08)
[2020-10-12] MEDS: HYDROcodone/acetaminophen 10/325mg tab PO PRN (20:08)
[2020-10-12] MEDS: enoxaparin 40mg/0.4ml syringe SUBCUT SCH (20:09)
[2020-10-12 20:23] VITALS: BP 101/52
[2020-10-12] MEDS: insulin glargine (Lantus) pen - multi-dose SQ SCH (21:00)
[2020-10-12] MEDS: acetaminophen 325mg tablet PO PRN (22:07)
[2020-10-12 23:45] VITALS: BP 129/55
[2020-10-13] MEDS: ceFAZolin/D5W- 1GM premix 50 ML IV SCH ×3 (00:18→16:58)
[2020-10-13] MEDS: HYDROmorphone inj. 0.5 MG/0.5 ML DISP.SYRIN IV PRN (01:16)
[2020-10-13 06:15] LABS: BASOPHILS # (AUTO) 0.1 X10'3 (0-0.2); BASOPHILS % (AUTO) 1.1 % (0-1); EOSINOPHILS # (AUTO) 0.4 X10'3 (0-0.9); EOSINOPHILS % (AUTO) 3.8 % (0-6); HEMATOCRIT 26.6 % (35.0-45.0); HEMOGLOBIN 8.9 g/dl (12.0-16.0); LYMPHOCYTES # (AUTO) 3.1 X10'3 (1.1-4.8); LYMPHOCYTES % (AUTO) 27.1 % (21-51); MEAN CORPUSCULAR HEMOGLOBIN 29.3 PG (27.0-31.0); MEAN CORPUSCULAR HGB CONC 33.4 g/dL (33.0-36.5); MEAN CORPUSCULAR VOLUME 87.8 FL (78-98); MEAN PLATELET VOLUME 7.8 FL (7.4-10.4); MONOCYTES # (AUTO) 1.1 X10'3 (0-0.9); MONOCYTES % (AUTO) 9.3 % (2-12); NEUTROPHILS # (AUTO) 6.8 X10'3 (1.8-7.7); NEUTROPHILS % (AUTO) 58.7 % (42-75); PLATELET COUNT 459 X10'3 (140-440); RED BLOOD COUNT 3.03 X10'6 (4.20-5.60); RED CELL DISTRIBUTION WIDTH 15.2 % (11.5-14.5); WHITE BLOOD COUNT 11.6 X10'3 (4.5-11.0)
--- NOTE | 2020-10-13 06:30 | NUR ---
Patient in room CASSY 346. I have received report from Eric SOL and had the opportunity to ask questions and assume patient care.
[2020-10-13 06:37] LABS: ALBUMIN 1.9 G/DL (3.4-5.0); ALBUMIN/GLOBULIN RATIO 0.5 (1.1-1.5); ALKALINE PHOSPHATASE 69 IU/L (46-116); ANION GAP 9 (8-16); ASPARTATE AMINO TRANSFERASE 9 U/L (10-37); BILIRUBIN,TOTAL 0.3 MG/DL (0.1-1.0); BLOOD UREA NITROGEN 21 MG/DL (7-18); BUN/CREATININE RATIO 15.1 (6.6-38.0); CHLORIDE 105 MMOL/L (99-107); CREATININE 1.39 MG/DL (0.40-0.90); GLUCOSE 112 MG/DL (70-104); SODIUM 137 MMOL/L (135-145); TOTAL CARBON DIOXIDE 23.2 MMOL/L (24-32); eGFR 37 ML/MIN
[2020-10-13 07:23] LABS: ALANINE AMINOTRANSFERASE < 6 U/L (12-78)
[2020-10-13 07:34] VITALS: BP 123/56
[2020-10-13] MEDS ORDERED: NIFEdipine XL 30mg tablet PO SCH (08:00)
[2020-10-13] MEDS: K and/or MAG REPLACEMENT MC SCH ×2 (08:00→20:00)
[2020-10-13] MEDS ORDERED: morphine 2 MG/ML inj. syringe IV PRN (09:10)
[2020-10-13] MEDS ORDERED: HYDROcodone/acetaminophen 5mg/325mg tablet PO PRN (09:10)
[2020-10-13] MEDS: lactobacillus rhamnosus 10,000 MMU CELLS/CAPSULE PO SCH ×2 (09:46→21:36)
[2020-10-13] MEDS: aspirin 81mg tablet.DR PO SCH (09:46)
[2020-10-13] MEDS: metoprolol tartrate 25mg tablet PO SCH ×2 (09:47→21:39)
[2020-10-13] MEDS: NIFEdipine XL 30mg tablet PO SCH (09:48)
[2020-10-13] MEDS: HYDROcodone/acetaminophen 10/325mg tab PO PRN ×3 (09:59→21:41)
[2020-10-13] MEDS: acetaminophen 325mg tablet PO PRN (11:40)
[2020-10-13 12:00] VITALS: BP 115/42
--- NOTE | 2020-10-13 19:06 | NUR ---
Problems reprioritized. Patient report given, questions answered & plan of care reviewed with Chris SOL.
[2020-10-13 19:25] VITALS: BP 117/55
[2020-10-13] MEDS: insulin glargine (Lantus) pen - multi-dose SQ SCH (21:00)
[2020-10-13] MEDS: atorvastatin 10mg tablet PO SCH (21:40)
[2020-10-13] MEDS: enoxaparin 40mg/0.4ml syringe SUBCUT SCH (21:40)
[2020-10-13] MEDS: Melatonin 3mg tablet PO SCH (21:41)
[2020-10-13] MEDS: magnesium hydroxide 30ml (MOM) UD suspension PO PRN (21:46)
[2020-10-13] MEDS: temazepam 15mg capsule PO PRN (22:01)
[2020-10-14 00:11] VITALS: BP 112/48
[2020-10-14] MEDS: ceFAZolin/D5W- 1GM premix 50 ML IV SCH ×3 (01:50→14:56)
[2020-10-14 06:24] LABS: BASOPHILS # (AUTO) 0.1 X10'3 (0-0.2); EOSINOPHILS # (AUTO) 0.4 X10'3 (0-0.9); EOSINOPHILS % (AUTO) 4.5 % (0-6); HEMATOCRIT 28.9 % (35.0-45.0); HEMOGLOBIN 9.6 g/dl (12.0-16.0); LYMPHOCYTES # (AUTO) 2.4 X10'3 (1.1-4.8); LYMPHOCYTES % (AUTO) 24.9 % (21-51); MEAN CORPUSCULAR HEMOGLOBIN 29.1 PG (27.0-31.0); MEAN CORPUSCULAR HGB CONC 33.1 g/dL (33.0-36.5); MEAN CORPUSCULAR VOLUME 88.1 FL (78-98); MEAN PLATELET VOLUME 7.8 FL (7.4-10.4); MONOCYTES # (AUTO) 0.8 X10'3 (0-0.9); MONOCYTES % (AUTO) 8.5 % (2-12); NEUTROPHILS % (AUTO) 61.1 % (42-75); PLATELET COUNT 530 X10'3 (140-440); RED BLOOD COUNT 3.29 X10'6 (4.20-5.60); RED CELL DISTRIBUTION WIDTH 15.2 % (11.5-14.5); WHITE BLOOD COUNT 9.8 X10'3 (4.5-11.0)
--- NOTE | 2020-10-14 07:10 | NUR ---
Problems reprioritized. Patient report given, questions answered & plan of care reviewed with Jimena SOL.
[2020-10-14 07:18] VITALS: BP 115/30
[2020-10-14] MEDS: K and/or MAG REPLACEMENT MC SCH ×2 (08:00→20:00)
[2020-10-14 10:06] LABS: ANION GAP 8 (8-16); BLOOD UREA NITROGEN 25 MG/DL (7-18); BUN/CREATININE RATIO 17.4 (6.6-38.0); CALCIUM 8.1 MG/DL (8.5-10.1); CHLORIDE 105 MMOL/L (99-107); CREATININE 1.44 MG/DL (0.40-0.90); GLUCOSE 144 MG/DL (70-104); POTASSIUM 4.1 MMOL/L (3.5-5.1); SODIUM 139 MMOL/L (135-145); TOTAL CARBON DIOXIDE 26.4 MMOL/L (24-32); eGFR 35 ML/MIN
[2020-10-14] MEDS: aspirin 81mg tablet.DR PO SCH (10:48)
[2020-10-14] MEDS: NIFEdipine XL 30mg tablet PO SCH (10:48)
[2020-10-14] MEDS: metoprolol tartrate 25mg tablet PO SCH ×2 (10:48→19:24)
[2020-10-14] MEDS: lactobacillus rhamnosus 10,000 MMU CELLS/CAPSULE PO SCH ×2 (10:48→19:23)
[2020-10-14] MEDS: acetaminophen 325mg tablet PO PRN (10:53)
[2020-10-14 11:45] VITALS: BP 137/59
--- NOTE | 2020-10-14 14:49 | NUR ---
Reassessment: Wound VAC discontinued per EMR. PO intake slowly improving, up to 75% PO intake since breakfast 10/13. LBM 10/04, with no routine bowel care available. Pt given PRN MoM 10/10 and 10/13 with one time dose of Mag-Citrate 10/10. D/w dietary to send power pudding with next meal to further assist with bowel regularity. Will continue to follow closely and monitor need for further nutrition intervention. Recommendations: 1) Continue CHO controlled diet; encourage PO intake 2) Monitor need for additional protein/ONS 3) Routine bowel care 4) Weekly scaled weights Addendum: 10/14/20 at [address] Amended: Links added.
[2020-10-14] MEDS: HYDROcodone/acetaminophen 10/325mg tab PO PRN ×2 (14:56→18:59)
[2020-10-14] MEDS ORDERED: CEPH250T PO (15:51)
[2020-10-14] MEDS ORDERED: HYDR-3965 PO (15:54)
--- NOTE | 2020-10-14 16:00 | NUR ---
Discharge order noted however, while walking pt. she is a 1 person min assist but can only go a short distance and states she has 2 stairs at her home that she has to up in order to get to the elevator that takes her to her room. Juan made aware that Karla surgeon also has not rounded on pt. yet. Juan stated that she would leave her discharge orders in, but that the discharge would be up to the surgeon. Amos rounded for Karla and stated that she should stay another night.
--- NOTE | 2020-10-14 18:15 | NUR ---
Report given to Lucina SOL
--- NOTE | 2020-10-14 18:27 | NUR ---
Patient in room CASSY 355. I have received report from Jimena SOL and had the opportunity to ask questions and assume patient care.
[2020-10-14] MEDS: enoxaparin 40mg/0.4ml syringe SUBCUT SCH (19:22)
[2020-10-14] MEDS: magnesium hydroxide 30ml (MOM) UD suspension PO PRN (19:23)
[2020-10-14 19:25] VITALS: BP 117/59
[2020-10-14] MEDS: atorvastatin 10mg tablet PO SCH (21:30)
[2020-10-14] MEDS: Melatonin 3mg tablet PO SCH (21:30)
[2020-10-14] MEDS: insulin glargine (Lantus) pen - multi-dose SQ SCH (21:41)
[2020-10-15] VITALS: BP 126/55
[2020-10-15] MEDS: ceFAZolin/D5W- 1GM premix 50 ML IV SCH ×2 (00:26→09:12)
[2020-10-15] MEDS: temazepam 15mg capsule PO PRN (01:12)
[2020-10-15] MEDS: HYDROcodone/acetaminophen 10/325mg tab PO PRN ×3 (01:12→13:18)
[2020-10-15] MEDS: normal saline 1000ml 1,000 ML IV SCH (05:36)
--- NOTE | 2020-10-15 06:45 | NUR ---
Patient in room CASSY 355. I have received report from SWETA Perez and had the opportunity to ask questions and assume patient care.
[2020-10-15 07:00] VITALS: BP 128/57
--- NOTE | 2020-10-15 07:30 | NUR ---
Problems reprioritized. Patient report given, questions answered & plan of care reviewed with Paige SOL.
[2020-10-15] MEDS: K and/or MAG REPLACEMENT MC SCH (08:00)
[2020-10-15] MEDS: NIFEdipine XL 30mg tablet PO SCH (09:11)
[2020-10-15] MEDS: lactobacillus rhamnosus 10,000 MMU CELLS/CAPSULE PO SCH (09:11)
[2020-10-15] MEDS: aspirin 81mg tablet.DR PO SCH (09:11)
[2020-10-15] MEDS: metoprolol tartrate 25mg tablet PO SCH (09:12)
[2020-10-15 11:00] VITALS: BP 122/48
--- NOTE | 2020-10-15 13:35 | NUR ---
Pt discharged to home with all belongings via taxi. Discharge instructions and medications reviewed. New prescriptions e-scripted to [facility]. Pt instructed to follow up with Dr Acosta and PCP, phone number provided. Pt stated understanding and willingness to comply with all discharge instructions. IV DC'd, cannula intact. Pt escorted to front lobby via wheelchair by PCT.
== END 2020-10-15 13:40 | disposition home health service (06) | DRG 252 ==
LOC: ER 10:35 → ED HOLD 13:44 → SUR 3N 10-04 11:10 → ICU 2S 10-07 18:39 → SUR 3N 10-10 18:48
PROVIDERS: ADMIT Family Medicine; ATTEND Family Medicine
PROC: B41G1ZZ Fluoroscopy of Left Lower Extremity Arteries using Low Osmolar Contrast (ICD-10-PCS; 2020-10-06)
PROC: 041L0JL Bypass Left Femoral Artery to Popliteal Artery with Synthetic Substitute, Open Approach (ICD-10-PCS; 2020-10-07)
PROC: 30233N1 Transfusion of Nonautologous Red Blood Cells into Peripheral Vein, Percutaneous Approach (ICD-10-PCS; 2020-10-07)
PROC: 04CL0ZZ Extirpation of Matter from Left Femoral Artery, Open Approach (ICD-10-PCS; principal; 2020-10-07 18:05)
DX: E11.52 Type 2 diabetes mellitus with diabetic peripheral angiopathy with gangrene (principal); N17.0 Acute kidney failure with tubular necrosis; E78.00 Pure hypercholesterolemia, unspecified; E87.5 Hyperkalemia; G89.29 Other chronic pain; E78.5 Hyperlipidemia, unspecified; F17.200 Nicotine dependence, unspecified, uncomplicated; E11.42 Type 2 diabetes mellitus with diabetic polyneuropathy; Z20.822 Contact with and (suspected) exposure to COVID-19; E87.6 Hypokalemia; Z60.2 Problems related to living alone; N18.9 Chronic kidney disease, unspecified; E11.22 Type 2 diabetes mellitus with diabetic chronic kidney disease; F41.9 Anxiety disorder, unspecified; I12.9 Hypertensive chronic kidney disease with stage 1 through stage 4 chronic kidney disease, or unspecified chronic kidney disease; L97.529 Non-pressure chronic ulcer of other part of left foot with unspecified severity; E11.621 Type 2 diabetes mellitus with foot ulcer; Z88.8 Allergy status to other drugs, medicaments and biological substances; Z79.01 Long term (current) use of anticoagulants; Z71.6 Tobacco abuse counseling
CPT/HCPCS: 36245; 36415; 36430; 71045; 73630; 75710; 76937; 80047; 80048; 80053; 80061; 81001; 82948; 83735; 84132; 85007; 85025; 85610; 85730; 86885; 86900; 86901; 86920; 87081; 87635; 88300; 93005; 93306; 93880; 93922; 93926; 93971; 97110; 97116; 97161; 97530; 97535; 99285; A4215; A4618; A6213; A6258; A6455; A7000; C1758; C1768; C1894; C9399; G0378; J0360; J0690; J1170; J1200; J1644; J1650; J1815; J2001; J2060; J2270; J2370; J2405; J2704; J2710; J3010; J3475; J3480; J3490; J7030; J7040; J7120; P9016; Q9967

== ENCOUNTER 2020-10-22 22:26 | Inpatient (IN) | payer MEDICARE, MEDICAID ==
[~2020-10-22] VITALS: Ht 162.6 cm; Wt 59.0 kg
[~2020-10-22 22:26] MED LIST changes: -GABA-530 PO; +GABA300C PO; -GLIP10TA21 PO; -HYDR-3964 PO; +HYDR-3965 PO; -INSU100I45 SQ; -LACT1CAP26 PO; -PANT40TA54 PO; +SIMV-42 PO; -SITA25TA3 PO; -SULF1TAB45 PO
[2020-10-22] MEDS ORDERED: VANCOMYCIN 1GM/200ML IVPB 200 ML IV ONE (22:55)
[2020-10-22] MEDS ORDERED: normal saline 1000ml 1,000 ML IV ONE (22:55)
[2020-10-22] MEDS ORDERED: vancomycin/NS 1 GM ADD-VANTAGE 200 ML IV ONE (23:00)
[2020-10-22 23:10] LABS: BASOPHILS # (AUTO) 0.1 X10'3 (0-0.2); EOSINOPHILS # (AUTO) 0.3 X10'3 (0-0.9); EOSINOPHILS % (AUTO) 2.5 % (0-6); HEMATOCRIT 31.9 % (35.0-45.0); HEMOGLOBIN 10.2 g/dl (12.0-16.0); LYMPHOCYTES # (AUTO) 2.2 X10'3 (1.1-4.8); LYMPHOCYTES % (AUTO) 17.7 % (21-51); MEAN CORPUSCULAR HEMOGLOBIN 28.3 PG (27.0-31.0); MEAN CORPUSCULAR HGB CONC 31.9 g/dL (33.0-36.5); MEAN CORPUSCULAR VOLUME 88.7 FL (78-98); MEAN PLATELET VOLUME 7.6 FL (7.4-10.4); MONOCYTES % (AUTO) 8.4 % (2-12); NEUTROPHILS # (AUTO) 8.5 X10'3 (1.8-7.7); NEUTROPHILS % (AUTO) 70.4 % (42-75); PLATELET COUNT 544 X10'3 (140-440); RED CELL DISTRIBUTION WIDTH 15.9 % (11.5-14.5); WHITE BLOOD COUNT 12.1 X10'3 (4.5-11.0)
[2020-10-22 23:14] LABS: PARTIAL THROMBOPLASTIN TIME 27 SECONDS (22-32)
[2020-10-22 23:15] LABS: ALANINE AMINOTRANSFERASE 8 U/L (12-78); ALBUMIN 2.8 G/DL (3.4-5.0); ALBUMIN/GLOBULIN RATIO 0.7 (1.1-1.5); ALKALINE PHOSPHATASE 87 IU/L (46-116); ANION GAP 8 (8-16); ASPARTATE AMINO TRANSFERASE 10 U/L (10-37); BILIRUBIN,TOTAL 0.3 MG/DL (0.1-1.0); BLOOD UREA NITROGEN 29 MG/DL (7-18); BUN/CREATININE RATIO 19.2 (6.6-38.0); CALCIUM 8.6 MG/DL (8.5-10.1); CHLORIDE 105 MMOL/L (99-107); CREATININE 1.51 MG/DL (0.40-0.90); GLUCOSE 158 MG/DL (70-104); LIPASE 335 U/L (73-393); POTASSIUM 3.8 MMOL/L (3.5-5.1); SODIUM 140 MMOL/L (135-145); TOTAL CARBON DIOXIDE 27.3 MMOL/L (24-32); TOTAL PROTEIN 7.1 G/DL (6.4-8.2); eGFR 34 ML/MIN
[2020-10-22] MEDS ORDERED: iohexol 300mg/ml 100ml inj. ONE (23:33)
[2020-10-23] MEDS ORDERED: piperacillin/tazo 3.375gm/50ml 50 ML IV SCH
[2020-10-23] MEDS ORDERED: acetaminophen 325mg tablet PO PRN (02:30)
[2020-10-23] MEDS ORDERED: ondansetron/PF 4mg/2ml inj IV PRN (02:30)
[2020-10-23] MEDS ORDERED: potassium Cl 40MEQ/1/2NS 520ml 520 ML IV PRN ×2 (02:30)
[2020-10-23] MEDS ORDERED: potassium Cl 20 mEq SR tablet PO PRN ×2 (02:30)
[2020-10-23] MEDS ORDERED: mag hydrox/Alum hydrox/simeth 30ml oral suspension PO PRN (02:30)
[2020-10-23] MEDS ORDERED: magnesium hydroxide 30ml (MOM) UD suspension PO PRN (02:30)
[2020-10-23] MEDS ORDERED: dextrose ORAL solution 15 GM/59 ML bottle PO PRN ×2 (02:40)
[2020-10-23] MEDS ORDERED: dextrose 50%-water 50ml dispensing syringe IV PRN ×2 (02:40)
[2020-10-23] MEDS ORDERED: insulin Lispro (HumaLOG) vial - multi-dose SQ SCH (02:40)
[2020-10-23] MEDS ORDERED: MESSAGE TO PHARMACY PO ONE (02:40)
[2020-10-23] MEDS ORDERED: glucagon, human recombinant 1mg kit SUBCUT PRN (02:40)
[2020-10-23] MEDS ORDERED: amLODIPine 5mg tablet PO ONE (03:10)
[2020-10-23] MEDS: normal saline 1000ml 1,000 ML IV SCH ×2 (03:25→17:02)
[2020-10-23 07:50] VITALS: BP 169/74
[2020-10-23] MEDS: K and/or MAG REPLACEMENT MC SCH ×2 (08:00→20:00)
[2020-10-23] MEDS: piperacillin/tazo 3.375gm/50ml 50 ML IV SCH ×2 (08:00→17:01)
[2020-10-23] MEDS ORDERED: aspirin 81mg, enteric-coated 1 TAB TABLET.DR PO SCH (08:00)
[2020-10-23] MEDS: gabapentin 300mg capsule PO SCH ×3 (10:09→23:44)
[2020-10-23] MEDS: lisinopril 20mg tablet PO SCH (10:09)
[2020-10-23] MEDS: docusate sod 100mg capsule PO SCH ×2 (10:10→20:00)
[2020-10-23] MEDS: apixaban 5mg tablet PO SCH ×2 (10:11→22:17)
[2020-10-23] MEDS: LORazepam 0.5 MG tablet PO PRN ×2 (11:12→23:44)
[2020-10-23 11:47] VITALS: BP 164/71
[2020-10-23 12:29] LABS: OCCULT BLOOD STOOL POSITIVE (Neg)
--- NOTE | 2020-10-23 18:30 | NUR ---
Patient in room CASSY 358. I have received report from CRISTINA and had the opportunity to ask questions and assume patient care.
[2020-10-23 19:00] VITALS: BP 137/62
[2020-10-23] MEDS: acetaminophen 325mg tablet PO PRN (19:03)
[2020-10-23] MEDS ORDERED: atorvastatin 10mg tablet PO SCH (21:00)
[2020-10-23] MEDS: insulin glargine (Lantus) pen - multi-dose SQ SCH (21:00)
[2020-10-23] MEDS: VANCOMYCIN 750MG IV in NS 250 ML IV SCH (22:23)
[2020-10-23 23:00] VITALS: BP 117/69
[2020-10-24] VITALS (9 sets, daily range): BP systolic 143–177; BP diastolic 64–81
[2020-10-24] MEDS: piperacillin/tazo 3.375gm/50ml 50 ML IV SCH ×2 (00:26→08:42)
[2020-10-24] MEDS: acetaminophen 325mg tablet PO PRN ×3 (05:50→19:32)
[2020-10-24] MEDS: normal saline 1000ml 1,000 ML IV SCH ×2 (05:51→21:40)
[2020-10-24 06:25] LABS: EOSINOPHILS # (AUTO) 0.3 X10'3 (0-0.9); LYMPHOCYTES # (AUTO) 2.3 X10'3 (1.1-4.8); MEAN PLATELET VOLUME 8.1 FL (7.4-10.4)
[2020-10-24 06:27] LABS: BASOPHILS # (AUTO) 0.1 X10'3 (0-0.2); BASOPHILS % (AUTO) 1.3 % (0-1); EOSINOPHILS % (AUTO) 3.4 % (0-6); HEMOGLOBIN 8.6 g/dl (12.0-16.0); LYMPHOCYTES % (AUTO) 22.9 % (21-51); MEAN CORPUSCULAR HGB CONC 32.9 g/dL (33.0-36.5); MEAN CORPUSCULAR VOLUME 88.1 FL (78-98); MONOCYTES # (AUTO) 0.7 X10'3 (0-0.9); NEUTROPHILS # (AUTO) 6.6 X10'3 (1.8-7.7); NEUTROPHILS % (AUTO) 65.4 % (42-75); PLATELET COUNT 445 X10'3 (140-440); RED BLOOD COUNT 2.96 X10'6 (4.20-5.60); RED CELL DISTRIBUTION WIDTH 15.6 % (11.5-14.5); WHITE BLOOD COUNT 10.1 X10'3 (4.5-11.0)
--- NOTE | 2020-10-24 06:33 | NUR ---
Problems reprioritized. Patient report given, questions answered & plan of care reviewed with HARJEET.
[2020-10-24 06:43] LABS: ALANINE AMINOTRANSFERASE 7 U/L (12-78); ALBUMIN 2.2 G/DL (3.4-5.0); ALBUMIN/GLOBULIN RATIO 0.6 (1.1-1.5); ALKALINE PHOSPHATASE 69 IU/L (46-116); ANION GAP 8 (8-16); ASPARTATE AMINO TRANSFERASE 7 U/L (10-37); BILIRUBIN,TOTAL 0.3 MG/DL (0.1-1.0); BLOOD UREA NITROGEN 23 MG/DL (7-18); CALCIUM 7.9 MG/DL (8.5-10.1); CHLORIDE 110 MMOL/L (99-107); CREATININE 1.28 MG/DL (0.40-0.90); GLUCOSE 134 MG/DL (70-104); POTASSIUM 3.6 MMOL/L (3.5-5.1); SODIUM 144 MMOL/L (135-145); eGFR 41 ML/MIN
[2020-10-24] MEDS: docusate sod 100mg capsule PO SCH ×2 (08:00→20:00)
[2020-10-24] MEDS: K and/or MAG REPLACEMENT MC SCH ×2 (08:00→20:00)
[2020-10-24] MEDS: lisinopril 20mg tablet PO SCH (08:43)
[2020-10-24] MEDS: gabapentin 300mg capsule PO SCH (08:43)
[2020-10-24] MEDS: apixaban 5mg tablet PO SCH (08:43)
--- NOTE | 2020-10-24 09:35 | NUR ---
Diabetes consult: A1C 7.7 well controlled and appropriate for age, DM education not necessary at this time. Will continue to monitor. Addendum: 10/24/20 at [address] Amended: Links added.
[2020-10-24] MEDS ORDERED: fentaNYL/PF 50MCG/1 ML 2ML syringe ONE (14:56)
[2020-10-24] MEDS ORDERED: MIDAZolam 1 MG/ML 5ML VIAL ONE (14:56)
[2020-10-24] MEDS ORDERED: LIDOcaine Viscous 15ml cup ONE (14:57)
--- NOTE | 2020-10-24 15:00 | NUR ---
Pt to GI lab for EGD via skye.
--- NOTE | 2020-10-24 18:29 | NUR ---
Problems reprioritized. Patient report given, questions answered & plan of care reviewed with SWETA Lopez. Pt to tx to tele room 1389H.
--- NOTE | 2020-10-24 18:30 | NUR ---
Patient in room CASSY 358. I have received report from HARJEET SOL and had the opportunity to ask questions and assume patient care. PATIENT FOR TRANSFER TO PCU ROOM 3014B FOR TELEMETRY.
--- NOTE | 2020-10-24 19:40 | NUR ---
Patient in room PCU 3014. I have received report from John SOL and had the opportunity to ask questions and assume patient care.
--- NOTE | 2020-10-24 19:50 | NUR ---
PATIENT TRANSFERRED TO ROOM 3014B PCU FROM [facility] IN A BED WITH 2 STAFF FOR TELEMETRY PLACEMENT, AFTER REPORT WAS GIVEN TO CECILIA SOL. BELONGINGS ACCOUNTED FOR AND SENT WITH PATIENT.
[2020-10-24] MEDS: pantoprazole 40MG/NS 100ML BAG 100 ML IV SCH (20:14)
[2020-10-24] MEDS: insulin glargine (Lantus) pen - multi-dose SQ SCH (21:39)
[2020-10-24] MEDS: atorvastatin 10mg tablet PO SCH (21:40)
[2020-10-24] MEDS: gabapentin 400mg capsule PO SCH (21:40)
[2020-10-24] MEDS: LORazepam 0.5 MG tablet PO PRN (21:41)
[2020-10-24] MEDS: VANCOMYCIN 750MG IV in NS 250 ML IV SCH (23:29)
[2020-10-25 02:00] VITALS: BP 170/66
[2020-10-25] MEDS: pantoprazole 40MG/NS 100ML BAG 100 ML IV SCH ×5 (02:01→19:56)
[2020-10-25] MEDS: acetaminophen 325mg tablet PO PRN ×3 (05:09→19:46)
[2020-10-25 06:00] VITALS: BP 168/57
[2020-10-25 06:07] LABS: BASOPHILS # (AUTO) 0.1 X10'3 (0-0.2); BASOPHILS % (AUTO) 1.2 % (0-1); EOSINOPHILS # (AUTO) 0.4 X10'3 (0-0.9); EOSINOPHILS % (AUTO) 4.9 % (0-6); HEMATOCRIT 28.1 % (35.0-45.0); HEMOGLOBIN 9.1 g/dl (12.0-16.0); LYMPHOCYTES # (AUTO) 1.8 X10'3 (1.1-4.8); LYMPHOCYTES % (AUTO) 20.6 % (21-51); MEAN CORPUSCULAR HEMOGLOBIN 29.1 PG (27.0-31.0); MEAN CORPUSCULAR HGB CONC 32.3 g/dL (33.0-36.5); MEAN PLATELET VOLUME 7.9 FL (7.4-10.4); MONOCYTES # (AUTO) 0.7 X10'3 (0-0.9); MONOCYTES % (AUTO) 8.5 % (2-12); NEUTROPHILS # (AUTO) 5.5 X10'3 (1.8-7.7); NEUTROPHILS % (AUTO) 64.8 % (42-75); PLATELET COUNT 451 X10'3 (140-440); RED BLOOD COUNT 3.12 X10'6 (4.20-5.60); WHITE BLOOD COUNT 8.5 X10'3 (4.5-11.0)
[2020-10-25 06:29] LABS: ALANINE AMINOTRANSFERASE 13 U/L (12-78); ALBUMIN 2.3 G/DL (3.4-5.0); ALBUMIN/GLOBULIN RATIO 0.6 (1.1-1.5); ALKALINE PHOSPHATASE 63 IU/L (46-116); ANION GAP 6 (8-16); ASPARTATE AMINO TRANSFERASE 12 U/L (10-37); BILIRUBIN,TOTAL 0.2 MG/DL (0.1-1.0); BLOOD UREA NITROGEN 19 MG/DL (7-18); CALCIUM 7.8 MG/DL (8.5-10.1); CHLORIDE 111 MMOL/L (99-107); CREATININE 1.27 MG/DL (0.40-0.90); GLUCOSE 136 MG/DL (70-104); POTASSIUM 3.5 MMOL/L (3.5-5.1); SODIUM 145 MMOL/L (135-145); TOTAL CARBON DIOXIDE 27.9 MMOL/L (24-32); TOTAL PROTEIN 6.3 G/DL (6.4-8.2); eGFR 41 ML/MIN
--- NOTE | 2020-10-25 06:45 | NUR ---
Patient in room PCU 3014. I have received report from inderjit salter and had the opportunity to ask questions and assume patient care.
[2020-10-25] MEDS: docusate sod 100mg capsule PO SCH ×2 (08:00→19:45)
[2020-10-25] MEDS: lisinopril 20mg tablet PO SCH (08:06)
[2020-10-25] MEDS: gabapentin 400mg capsule PO SCH ×2 (08:06→19:44)
[2020-10-25] MEDS: K and/or MAG REPLACEMENT MC SCH ×2 (08:07→19:56)
[2020-10-25 11:00] VITALS: BP 153/65
[2020-10-25] MEDS: normal saline 1000ml 1,000 ML IV SCH ×2 (11:42→19:41)
[2020-10-25 15:00] VITALS: BP 175/70
[2020-10-25 18:00] VITALS: BP 166/65
--- NOTE | 2020-10-25 18:00 | NUR ---
Problems reprioritized. Patient report given, questions answered & plan of care reviewed with inderjit sewell.
--- NOTE | 2020-10-25 18:05 | NUR ---
Patient in room PCU 3014. I have received report from Cassidy SOL at bedside and had the opportunity to ask questions and assume patient care.
[2020-10-25] MEDS: lactobacillus rhamnosus 10,000 MMU CELLS/CAPSULE PO SCH (19:44)
[2020-10-25] MEDS: atorvastatin 10mg tablet PO SCH (21:14)
[2020-10-25] MEDS: insulin glargine (Lantus) pen - multi-dose SQ SCH (21:17)
[2020-10-25 22:00] VITALS: BP 165/57
[2020-10-25] MEDS ORDERED: VANCOMYCIN LEVEL IV ONE (22:30)
[2020-10-25] MEDS: VANCOMYCIN 750MG IV in NS 250 ML IV SCH (22:56)
[2020-10-26] MEDS: pantoprazole 40MG/NS 100ML BAG 100 ML IV SCH ×3 (00:49→11:59)
[2020-10-26 02:00] VITALS: BP 155/76
[2020-10-26] MEDS: acetaminophen 325mg tablet PO PRN (03:30)
[2020-10-26 06:00] VITALS: BP 166/82
[2020-10-26 06:01] LABS: BASOPHILS # (AUTO) 0.1 X10'3 (0-0.2); BASOPHILS % (AUTO) 1.2 % (0-1); EOSINOPHILS # (AUTO) 0.5 X10'3 (0-0.9); HEMATOCRIT 26.2 % (35.0-45.0); HEMOGLOBIN 8.4 g/dl (12.0-16.0); LYMPHOCYTES # (AUTO) 2.6 X10'3 (1.1-4.8); LYMPHOCYTES % (AUTO) 27.2 % (21-51); MEAN CORPUSCULAR HEMOGLOBIN 28.9 PG (27.0-31.0); MEAN CORPUSCULAR HGB CONC 32.1 g/dL (33.0-36.5); MEAN CORPUSCULAR VOLUME 90.2 FL (78-98); MEAN PLATELET VOLUME 8.6 FL (7.4-10.4); MONOCYTES # (AUTO) 0.7 X10'3 (0-0.9); MONOCYTES % (AUTO) 7.5 % (2-12); NEUTROPHILS # (AUTO) 5.6 X10'3 (1.8-7.7); NEUTROPHILS % (AUTO) 59.1 % (42-75); PLATELET COUNT 452 X10'3 (140-440); RED CELL DISTRIBUTION WIDTH 15.8 % (11.5-14.5); WHITE BLOOD COUNT 9.5 X10'3 (4.5-11.0)
[2020-10-26 06:08] LABS: ALANINE AMINOTRANSFERASE 7 U/L (12-78); ALBUMIN 2.2 G/DL (3.4-5.0); ALBUMIN/GLOBULIN RATIO 0.6 (1.1-1.5); ALKALINE PHOSPHATASE 72 IU/L (46-116); ASPARTATE AMINO TRANSFERASE 8 U/L (10-37); BILIRUBIN,TOTAL 0.2 MG/DL (0.1-1.0); BLOOD UREA NITROGEN 14 MG/DL (7-18); BUN/CREATININE RATIO 11.4 (6.6-38.0); CALCIUM 7.8 MG/DL (8.5-10.1); CREATININE 1.23 MG/DL (0.40-0.90); GLUCOSE 94 MG/DL (70-104); TOTAL CARBON DIOXIDE 24.9 MMOL/L (24-32); eGFR 43 ML/MIN
--- NOTE | 2020-10-26 06:13 | NUR ---
Problems reprioritized. Patient report given, questions answered & plan of care reviewed with Karne RN at bedside.
[2020-10-26 06:36] LABS: ANION GAP 8 (8-16); CHLORIDE 114 MMOL/L (99-107); POTASSIUM 3.5 MMOL/L (3.5-5.1); SODIUM 147 MMOL/L (135-145)
[2020-10-26] MEDS: K and/or MAG REPLACEMENT MC SCH (07:04)
[2020-10-26] MEDS: lactobacillus rhamnosus 10,000 MMU CELLS/CAPSULE PO SCH (07:06)
[2020-10-26] MEDS: docusate sod 100mg capsule PO SCH (07:06)
[2020-10-26] MEDS: gabapentin 400mg capsule PO SCH (07:06)
[2020-10-26 07:07] VITALS: BP_SYST 157
[2020-10-26] MEDS: lisinopril 20mg tablet PO SCH (07:07)
[2020-10-26] MEDS ORDERED: PANT20TA18 PO (09:50)
--- NOTE | 2020-10-26 12:30 | NUR ---
Patient stable for discharge per MD orders. PIV discontinued intact. Telemetry monitoring equipment and returned to telemetry office. All discharge instructions reviewed with patient, who was given the opportunity to ask questions, and indicated good understanding of discharge requirements. Patient assisted into a wheelchair and wheeled to the front of the building, where she entered a transport vehicle, departing for home with the transport employee as delivery truck driver.
[2020-10-26] MEDS ORDERED: vancomycin/NS 1 GM ADD-VANTAGE 250 ML IV SCH (23:00)
[2020-10-29] MEDS ORDERED: VANCOMYCIN LEVEL IV ONE (22:30)
[2020-11-10] MEDS ORDERED: UNABLE TO OBTAIN (20:22)
== END 2020-10-26 12:30 | disposition home health service (06) | DRG 919 ==
LOC: ER 22:26 → ED HOLD 10-23 02:36 → SUR 3N 10-23 07:43 → PCU 3S 10-24 19:45
PROVIDERS: ADMIT Internal Medicine; ATTEND Family Medicine
PROC: BW211ZZ Computerized Tomography (CT Scan) of Abdomen and Pelvis using Low Osmolar Contrast (ICD-10-PCS; 2020-10-23)
PROC: 0DB68ZX Excision of Stomach, Via Natural or Artificial Opening Endoscopic, Diagnostic (ICD-10-PCS; principal; 2020-10-24)
PROC: 0Y9 Anatomical Regions, Lower Extremities, Drainage (ICD-10-PCS; 2020-10-24)
DX: L76.34 Postprocedural seroma of skin and subcutaneous tissue following other procedure (principal); K26.4 Chronic or unspecified duodenal ulcer with hemorrhage; L03.90 Cellulitis, unspecified; S31.104A Unspecified open wound of abdominal wall, left lower quadrant without penetration into peritoneal cavity, initial encounter; D64.9 Anemia, unspecified; E11.42 Type 2 diabetes mellitus with diabetic polyneuropathy; E11.51 Type 2 diabetes mellitus with diabetic peripheral angiopathy without gangrene; E78.00 Pure hypercholesterolemia, unspecified; Z60.2 Problems related to living alone; I10 Essential (primary) hypertension; X58.XXXA Exposure to other specified factors, initial encounter; E78.5 Hyperlipidemia, unspecified; F41.9 Anxiety disorder, unspecified; K20.90 Esophagitis, unspecified without bleeding; K29.70 Gastritis, unspecified, without bleeding; Z86.16 Personal history of COVID-19; Z87.891 Personal history of nicotine dependence; Z91.048 Other nonmedicinal substance allergy status; Z79.899 Other long term (current) drug therapy; Z79.82 Long term (current) use of aspirin; Y93.89 Activity, other specified; Y92.89 Other specified places as the place of occurrence of the external cause; Y99.8 Other external cause status; Y83.8 Other surgical procedures as the cause of abnormal reaction of the patient, or of later complication, without mention of misadventure at the time of the procedure
CPT/HCPCS: 10160; 36415; 43239; 74177; 80053; 80202; 82272; 82948; 83036; 83605; 83690; 85025; 85610; 85730; 87070; 87081; 88305; 99152; 99285; A4620; C9113; G0378; J1815; J2250; J2405; J2543; J3010; J3370; J7030; J7040; J7050; Q9967

== ENCOUNTER 2020-11-03 12:22 | Emergency (ER) | payer MEDICARE, MEDICAID ==
[~2020-11-03] VITALS: Ht 162.6 cm; Wt 66.4 kg
[~2020-11-03 12:22] MED LIST changes: -ASPI81TA52 PO; +PANT20TA18 PO
[2020-11-03 13:19] LABS: BASOPHILS # (AUTO) 0.1 X10'3 (0-0.2); BASOPHILS % (AUTO) 0.6 % (0-1); EOSINOPHILS # (AUTO) 0.1 X10'3 (0-0.9); EOSINOPHILS % (AUTO) 0.5 % (0-6); HEMATOCRIT 32.8 % (35.0-45.0); HEMOGLOBIN 10.6 g/dl (12.0-16.0); LYMPHOCYTES # (AUTO) 2.2 X10'3 (1.1-4.8); LYMPHOCYTES % (AUTO) 15.3 % (21-51); MEAN CORPUSCULAR HEMOGLOBIN 28.2 PG (27.0-31.0); MEAN CORPUSCULAR HGB CONC 32.2 g/dL (33.0-36.5); MEAN CORPUSCULAR VOLUME 87.6 FL (78-98); MEAN PLATELET VOLUME 7.8 FL (7.4-10.4); MONOCYTES # (AUTO) 0.9 X10'3 (0-0.9); NEUTROPHILS # (AUTO) 11.4 X10'3 (1.8-7.7); NEUTROPHILS % (AUTO) 77.6 % (42-75); PLATELET COUNT 580 X10'3 (140-440); RED BLOOD COUNT 3.75 X10'6 (4.20-5.60); RED CELL DISTRIBUTION WIDTH 16.7 % (11.5-14.5); WHITE BLOOD COUNT 14.7 X10'3 (4.5-11.0)
[2020-11-03 13:34] LABS: ALANINE AMINOTRANSFERASE 11 U/L (12-78); ALBUMIN 3.3 G/DL (3.4-5.0); ALBUMIN/GLOBULIN RATIO 0.6 (1.1-1.5); ALKALINE PHOSPHATASE 112 IU/L (46-116); ANION GAP 12 (8-16); ASPARTATE AMINO TRANSFERASE 10 U/L (10-37); BILIRUBIN,TOTAL 0.3 MG/DL (0.1-1.0); BLOOD UREA NITROGEN 28 MG/DL (7-18); BUN/CREATININE RATIO 17.6 (6.6-38.0); CALCIUM 9.5 MG/DL (8.5-10.1); CHLORIDE 100 MMOL/L (99-107); CREATININE 1.59 MG/DL (0.40-0.90); GLUCOSE 185 MG/DL (70-104); LIPASE 112 U/L (73-393); POTASSIUM 4.1 MMOL/L (3.5-5.1); SODIUM 140 MMOL/L (135-145); TOTAL CARBON DIOXIDE 27.7 MMOL/L (24-32); TOTAL PROTEIN 8.7 G/DL (6.4-8.2); eGFR 32 ML/MIN
[2020-11-03 14:00] LABS: CLARITY,URINE CLOUDY (Clear); COLOR,URINE YELLOW (Yellow); GLUCOSE, URINE NEGATIVE (Neg); KETONES,URINE 15 mg/dl (Neg); LEUKOCYTE ESTERASE ,URINE MODERATE (Neg); NITRITES, URINE POSITIVE (Neg); OCCULT BLOOD,URINE LARGE (Neg); PROTEIN,URINE >=300 mg/dl (Neg); UROBILINOGEN,URINE 0.2 E.U/dL (0.2-1.0)
[2020-11-03 14:08] LABS: UA COLLECTION TYPE CLN CATCH MIDSTREAM
[2020-11-03] MEDS ORDERED: normal saline 1000ml 1,000 ML IV ONE (14:10)
[2020-11-03 14:11] LABS: BACTERIA,URINE 2+ /HPF (Neg); WBC,URINE TNTC /HPF (0-4)
[2020-11-03] MEDS ORDERED: CefTRIAXone/D5W-Rocephin 1gm 50 ML IV ONE (14:15)
--- NOTE | 2020-11-03 14:50 | NUR ---
TO CT VIA [facility]
[2020-11-03] MEDS ORDERED: ondansetron/PF 4mg/2ml inj IV ONE (15:20)
[2020-11-03] MEDS ORDERED: pantoprazole 40 MG vial IV ONE (15:45)
[2020-11-03] MEDS ORDERED: mag hydrox/Alum hydrox/simeth 30ml oral suspension PO ONE (15:45)
[2020-11-03] MEDS ORDERED: famotidine/PF 10 mg/ml inj IV ONE (15:45)
[2020-11-03] MEDS ORDERED: ONDA4TAB6 PO (16:10)
[2020-11-03] MEDS ORDERED: CEPH250T PO (16:10)
[2020-11-03 17:28] VITALS: BP 184/80
--- NOTE | 2020-11-09 08:53 | NUR ---
Called patient at 0845, informed her regarding change in antibiotic therapy. Patients questions answered. Patient stated that she would like her prescriptions to be called in to [facility]. Rx: Bactrim DS 160 mg TMP PO BID x 7 days total 14 tablets with no refills Dr. Joel Alves Called in prescrition to [facility] m falcon at 0915.
[2020-11-10] MEDS ORDERED: UNABLE TO OBTAIN (20:22)
[2020-11-14] MEDS ORDERED: LEVO500T89 PO (10:41)
== END 2020-11-03 17:30 | disposition home or self-care (01) ==
LOC: ER 12:23
DX: N39.0 Urinary tract infection, site not specified (principal); R11.2 Nausea with vomiting, unspecified; R63.0 Anorexia; K26.4 Chronic or unspecified duodenal ulcer with hemorrhage; R10.13 Epigastric pain; E11.42 Type 2 diabetes mellitus with diabetic polyneuropathy; E78.00 Pure hypercholesterolemia, unspecified; I10 Essential (primary) hypertension; Z98.890 Other specified postprocedural states; Z88.8 Allergy status to other drugs, medicaments and biological substances; Z79.2 Long term (current) use of antibiotics; Z79.899 Other long term (current) drug therapy
CPT/HCPCS: 36415; 74176; 80053; 81001; 83690; 85025; 87077; 87088; 87186; 96365; 96375; 99284; C9113; J0696; J2405; J3490; J7030

== ENCOUNTER → 2020-11-20 | Emergency (ER) | payer MEDICARE, MEDICAID ==
[~2020-11-20] VITALS: Ht 162.6 cm; Wt 60.9 kg
[~2020-11-20] MED LIST changes: -APIX5TAB3 PO; -CEPH250T PO; -HYDR-3965 PO; +LEVO500T89 PO; -METF-436 PO
[2020-11-20 23:23] LABS: BASOPHILS # (AUTO) 0.1 X10'3 (0-0.2); BASOPHILS % (AUTO) 0.9 % (0-1); EOSINOPHILS # (AUTO) 0.3 X10'3 (0-0.9); HEMATOCRIT 29.4 % (35.0-45.0); HEMOGLOBIN 9.3 g/dl (12.0-16.0); LYMPHOCYTES # (AUTO) 2.3 X10'3 (1.1-4.8); LYMPHOCYTES % (AUTO) 16.6 % (21-51); MEAN CORPUSCULAR HEMOGLOBIN 27.5 PG (27.0-31.0); MEAN CORPUSCULAR HGB CONC 31.5 g/dL (33.0-36.5); MEAN CORPUSCULAR VOLUME 87.2 FL (78-98); MONOCYTES % (AUTO) 7.2 % (2-12); NEUTROPHILS % (AUTO) 73.3 % (42-75); PLATELET COUNT 567 X10'3 (140-440); RED BLOOD COUNT 3.37 X10'6 (4.20-5.60); RED CELL DISTRIBUTION WIDTH 17.4 % (11.5-14.5); WHITE BLOOD COUNT 13.7 X10'3 (4.5-11.0)
[2020-11-20 23:39] LABS: ALANINE AMINOTRANSFERASE 9 U/L (12-78); ALBUMIN 2.7 G/DL (3.4-5.0); ALBUMIN/GLOBULIN RATIO 0.5 (1.1-1.5); ALKALINE PHOSPHATASE 98 IU/L (46-116); ANION GAP 8 (8-16); ASPARTATE AMINO TRANSFERASE 10 U/L (10-37); BILIRUBIN,TOTAL 0.2 MG/DL (0.1-1.0); BLOOD UREA NITROGEN 20 MG/DL (7-18); BUN/CREATININE RATIO 14.5 (6.6-38.0); CHLORIDE 104 MMOL/L (99-107); CREATININE 1.38 MG/DL (0.40-0.90); GLUCOSE 195 MG/DL (70-104); POTASSIUM 3.7 MMOL/L (3.5-5.1); SODIUM 141 MMOL/L (135-145); TOTAL CARBON DIOXIDE 28.9 MMOL/L (24-32); TOTAL PROTEIN 7.9 G/DL (6.4-8.2); eGFR 37 ML/MIN
[2020-11-21 01:28] VITALS: BP 182/97
--- NOTE | 2020-11-21 01:37 | NUR ---
PT REPORTS SHE MUST HAVE A WHEELCHAIR UP TO HER APARTMENT, SHE IS ONLY ABLE TO WALK SHORT DISTANCES WITH HER WALKER IN HER APT. MULTIPLE CALLS FOR [facility] TO ASSIST PT HOME, AWAITING RESPONSES.
== END | disposition home or self-care (01) ==
LOC: ER 22:12
DX: R06.02 Shortness of breath (principal); E78.00 Pure hypercholesterolemia, unspecified; I10 Essential (primary) hypertension; E11.43 Type 2 diabetes mellitus with diabetic autonomic (poly)neuropathy; Z88.8 Allergy status to other drugs, medicaments and biological substances; Z91.018 Allergy to other foods; Z79.2 Long term (current) use of antibiotics; Z79.899 Other long term (current) drug therapy
CPT/HCPCS: 36415; 71045; 80053; 82948; 83880; 84484; 85025; 93005; 99285

== ENCOUNTER 2021-05-29 10:31 | Day surgery (SDC) | payer BC, MEDICAID ==
[2021-05-26 10:47] LABS: BASOPHILS # (AUTO) 0.1 X10'3 (0-0.2); BASOPHILS % (AUTO) 1.3 % (0-1); EOSINOPHILS # (AUTO) 0.2 X10'3 (0-0.9); EOSINOPHILS % (AUTO) 2.3 % (0-6); LYMPHOCYTES # (AUTO) 2.3 X10'3 (1.1-4.8); LYMPHOCYTES % (AUTO) 26.6 % (21-51); MEAN CORPUSCULAR HEMOGLOBIN 27.1 PG (27.0-31.0); MEAN CORPUSCULAR HGB CONC 32.2 g/dL (33.0-36.5); MEAN CORPUSCULAR VOLUME 84.2 FL (78-98); MEAN PLATELET VOLUME 8.7 FL (7.4-10.4); MONOCYTES # (AUTO) 0.6 X10'3 (0-0.9); MONOCYTES % (AUTO) 7.1 % (2-12); NEUTROPHILS # (AUTO) 5.4 X10'3 (1.8-7.7); NEUTROPHILS % (AUTO) 62.7 % (42-75); PRE OP HEMOGLOBIN 11.9 g/dL (12.0-16.0); PRE OP PLATELET COUNT 352 X10'3 (140-440); RED CELL DISTRIBUTION WIDTH 17.4 % (11.5-14.5)
[2021-05-26 11:02] LABS: ALBUMIN 3.1 G/DL (3.4-5.0); ALBUMIN/GLOBULIN RATIO 0.6 (1.1-1.5); ALKALINE PHOSPHATASE 107 IU/L (46-116); BLOOD UREA NITROGEN 59 MG/DL (7-18); BUN/CREATININE RATIO 35.8 (6.6-38.0); C-REACTIVE PROTEIN 0.09 MG/DL (0.0-0.5); CALCIUM 9.4 MG/DL (8.5-10.1); CHLORIDE 105 MMOL/L (99-107); CREATININE 1.65 MG/DL (0.40-0.90); PRE OP ALT 14 U/L (30-65); PRE OP ANION GAP 11 (8-16); PRE OP AST 11 U/L (10-37); PRE OP BILIRUB, TOTAL 0.3 MG/DL (0.0-1.0); PRE OP GLUCOSE 143 MG/DL (70-104); PRE OP POTASSIUM 4.4 MMOL/L (3.4-5.1); PRE OP SODIUM 141 MMOL/L (135-145); TOTAL CARBON DIOXIDE 24.9 MMOL/L (24-32); TOTAL PROTEIN 8.3 G/DL (6.4-8.2); eGFR 30 ML/MIN
[2021-05-29] VITALS (17 sets, daily range): BP systolic 144–185; BP diastolic 49–85
[~2021-05-29] VITALS: Ht 162.6 cm; Wt 65.5 kg
[~2021-05-29 10:31] MED LIST changes: +ACET325T55; +APIX5TAB3 PO; +GLIP10TA21 PO; -LEVO500T89 PO; +METF-436 PO; +cefazolin/dext.iso 2gm/50ml IV ONE; +famotidine 20mg tablet PO ONE; +ringers solution, lacted 1,000 ML IV SCH
[2021-05-29] MEDS ORDERED: hydrALAZINE 20mg/ml inj. IV PRN (13:00)
[2021-05-29] MEDS ORDERED: proCHLORperazine 10 MG/2 ml inj IV PRN (13:00)
[2021-05-29] MEDS ORDERED: ringers solution, lacted 1,000 ML IV SCH (13:00)
[2021-05-29] MEDS ORDERED: ondansetron/PF 4mg/2ml inj IV PRN (13:00)
[2021-05-29] MEDS ORDERED: HYDROmorphone/PF 0.2 MG/ML SYRINGE IV PRN ×2 (13:00)
[2021-05-29] MEDS ORDERED: morphine 2 MG/ML inj. syringe IV PRN (13:00)
[2021-05-29] MEDS ORDERED: morphine 4 MG/ML inj SYRINge IV PRN (13:00)
[2021-05-29] MEDS ORDERED: acetaminophen 1,000mg/100ml IV 100 ML IV PRN (13:00)
[2021-05-29] MEDS ORDERED: meperidine/PF 25mg/ml syringe IV PRN (13:00)
[2021-05-29] MEDS ORDERED: dexamethasone sod phosphate 4mg/ml inj. ONE (13:20)
[2021-05-29] MEDS ORDERED: ROPIVAcaine 0.5% (5mg/ml) 30ml vial ONE (13:20)
[2021-05-29] MEDS ORDERED: propofol inj 20 ML IV ONE (13:20)
[2021-05-29] MEDS ORDERED: LIDOcaine 2% (20mg/ml) 5ml vial ONE (13:20)
[2021-05-29] MEDS ORDERED: 0.9 % SODIUM CHLORIDE 10 ML VIAL ONE (13:24)
[2021-05-29] MEDS ORDERED: ePHEDrine 50MG/ML INJ. ONE (13:25)
[2021-05-29 13:34] LABS: PRE OP PROTIME 10.2 SECONDS (9.0-12.0)
--- NOTE | 2021-05-29 13:45 | NUR ---
Received from OR via [facility], accompanied by Anesthesiologist DR HAHN and report given by Anesthesiologist AND INDUSTRIAL CONTROLS TECHNICIAN. PT AWAKE, DENIES PAIN, LEFT FOOT/GREATER TOE W/AMALIA WRAP COVERING INCISION/DRSG CDI. Addendum: 05/29/21 at 1418 by Rebeca Sheets RN Amended: Links added.
[2021-05-29] MEDS: labetalol 20mg/4ml (5mg/ml) syringe IV PRN ×2 (14:50→15:10)
--- NOTE | 2021-05-29 17:15 | NUR ---
PT UP AND ABLE TO AMBULATE SAFELY, VOIDED X 2, TOLERATING FOOD, CONSUMED SOUP AND SANDWICH, WATER. D/C INSTRUCTIONS GIVEN AND GONE OVER W/PT AND PTS TRACK AND FIELD COACH, BOTH VERBALIZED UNDERSTANDING. PT D/CD TO HOME VIA W/C TO PRIVATE VEHICLE W/O INCIDENT. Addendum: 05/29/21 at 1736 by Rebeca Sheets RN Amended: Links added.
== END 2021-05-29 17:15 | disposition home or self-care (01) ==
LOC: PAS 10:31
PROVIDERS: ATTEND Orthopaedic Surgery Orthopaedic Trauma
DX: M86.8X7 Other osteomyelitis, ankle and foot (principal); G89.18 Other acute postprocedural pain; I10 Essential (primary) hypertension; D64.9 Anemia, unspecified; E11.9 Type 2 diabetes mellitus without complications; Z88.8 Allergy status to other drugs, medicaments and biological substances; Z87.891 Personal history of nicotine dependence; Z98.890 Other specified postprocedural states; Z86.16 Personal history of COVID-19; Z79.899 Other long term (current) drug therapy; Z79.01 Long term (current) use of anticoagulants; Z20.822 Contact with and (suspected) exposure to COVID-19
CPT/HCPCS: 28825; 36415; 64450; 80053; 82948; 85025; 85610; 85651; 85730; 86140; 87635; 93005; A6222; C9803; J0131; J1100; J2704; J2795; J3490; J7030; J7120; Z7506; Z7512; A4618; A6446; A6449; A7000

== ENCOUNTER 2023-08-09 13:18 | Inpatient (IN) | payer MEDICARE, MEDICAID ==
[~2023-08-09] VITALS: Ht 160 cm; Wt 73.1 kg
[~2023-08-09 13:18] MED LIST changes: -ACET325T55; +ACET325T55 PO; -APIX5TAB3 PO; +ASPI81TA52 PO; +ATOR40TA PO; +EMPA10TA PO; -GLIP10TA21 PO; +LORA10TA7 PO; -METF-436 PO; -PANT20TA18 PO; -SIMV-42 PO; -cefazolin/dext.iso 2gm/50ml IV ONE; -famotidine 20mg tablet PO ONE; -ringers solution, lacted 1,000 ML IV SCH
[2023-08-09 14:14] LABS: BASOPHILS # (AUTO) 0.1 X10'3 (0-0.2); BASOPHILS % (AUTO) 0.6 % (0-1); EOSINOPHILS # (AUTO) 0.2 X10'3 (0-0.9); EOSINOPHILS % (AUTO) 1.3 % (0-6); HEMATOCRIT 34.7 % (35.0-45.0); HEMOGLOBIN 10.9 g/dl (12.0-16.0); MEAN CORPUSCULAR HEMOGLOBIN 28.4 PG (27.0-31.0); MEAN CORPUSCULAR HGB CONC 31.2 g/dL (33.0-36.5); MEAN CORPUSCULAR VOLUME 90.8 FL (78-98); MEAN PLATELET VOLUME 9.5 FL (7.4-10.4); MONOCYTES # (AUTO) 1.2 X10'3 (0-0.9); NEUTROPHILS # (AUTO) 11.1 X10'3 (1.8-7.7); NEUTROPHILS % (AUTO) 76.1 % (42-75); PLATELET COUNT 293 X10'3 (140-440); RED BLOOD COUNT 3.83 X10'6 (4.20-5.60); RED CELL DISTRIBUTION WIDTH 16.6 % (11.5-14.5); WHITE BLOOD COUNT 14.6 X10'3 (4.5-11.0)
[2023-08-09 14:18] LABS: ALBUMIN 2.7 G/DL (3.4-5.0); ANION GAP 5 (8-16); BLOOD UREA NITROGEN 59 MG/DL (7-18); BUN/CREATININE RATIO 21.9 (10.0-20.0); CHLORIDE 106 MMOL/L (99-107); CREATININE 2.69 MG/DL (0.40-0.90); POTASSIUM 4.9 MMOL/L (3.5-5.1); SODIUM 137 MMOL/L (135-145); TOTAL CARBON DIOXIDE 26.3 MMOL/L (24-32); eCRCL 14 ML/MIN; eGFR 17 ML/MIN
[2023-08-09 14:37] LABS: CALCIUM 8.5 MG/DL (8.5-10.1); GLUCOSE 199 MG/DL (70-104)
[2023-08-09] MEDS: piperacillin/tazo 3.375gm/50ml 50 ML IV ONE (16:16)
[2023-08-09] MEDS ORDERED: magnesium 2GM in 50ml NS 50 ML IV PRN (16:40)
[2023-08-09] MEDS ORDERED: magnesium hydroxide 30ml (MOM) UD suspension PO PRN (16:40)
[2023-08-09] MEDS ORDERED: potassium Cl 40MEQ/1/2NS 520ml 520 ML IV PRN (16:40)
[2023-08-09] MEDS ORDERED: magnesium Cl slow-release 64mg tablet PO PRN (16:40)
[2023-08-09] MEDS ORDERED: magnesium 4gm in 100ml NS 100 ML IV PRN (16:40)
[2023-08-09] MEDS: normal saline 1000ml 1,000 ML IV SCH (16:40)
[2023-08-09] MEDS ORDERED: acetaminophen 325mg tablet PO PRN (16:40)
[2023-08-09] MEDS ORDERED: mag hydrox/Alum hydrox/simeth 30ml oral suspension PO PRN (16:40)
[2023-08-09] MEDS ORDERED: HYDROcodone/acetaminophen 5mg/325mg tablet PO PRN (16:40)
[2023-08-09] MEDS ORDERED: potassium Cl 20 mEq SR tablet PO PRN ×2 (16:40)
[2023-08-09] MEDS ORDERED: vancomycin/NS 1 GM ADD-VANTAGE 250 ML X 1 DOSE IV PRN (17:00)
[2023-08-09 17:10] LABS: BILIRUBIN,URINE NEGATIVE (Neg); CLARITY,URINE CLEAR (Clear); COLOR,URINE STRAW (Yellow); GLUCOSE, URINE >=1000 mg/dl (Neg); KETONES,URINE NEGATIVE (Neg); LEUKOCYTE ESTERASE ,URINE NEGATIVE (Neg); NITRITES, URINE NEGATIVE (Neg); OCCULT BLOOD,URINE TRACE-INTACT (Neg); PH,URINE 6.5 (4.8-8.0); PROTEIN,URINE 100 mg/dl (Neg)
[2023-08-09 17:13] LABS: UA COLLECTION TYPE STRAIGHT CATH
[2023-08-09 17:25] LABS: RBC,URINE 0-2 /HPF (0-2)
[2023-08-09 17:26] LABS: BACTERIA,URINE 1+ /HPF (Neg); MUCUS STRANDS NONE SEEN /LPF (Neg); SQUAMOUS EPITHELIAL CELL,UR FEW /LPF (FEW); WBC CLUMPS,URINE FEW /HPF (NEGATIVE)
[2023-08-09] MEDS: hydrALAZINE 20mg/ml inj. IV PRN (18:15)
[2023-08-09] MEDS: VANCOMYCIN 1,500MG in normal saline IV soln 300 ML IV ONE (18:19)
[2023-08-09] MEDS: ondansetron/PF 4mg/2ml inj IV PRN (18:30)
[2023-08-09] MEDS: morphine 2 MG/ML inj. syringe IV PRN (18:30)
[2023-08-09] MEDS ORDERED: glucagon, human recombinant 1mg kit SUBCUT PRN (19:30)
[2023-08-09] MEDS ORDERED: dextrose 50%-water 50ml dispensing syringe IV PRN ×2 (19:30)
[2023-08-09] MEDS ORDERED: DEXTROSE 15 GM of carb/4 tabs (each vial/BOTTLE has 4 tablets) PO PRN ×2 (19:30)
[2023-08-09] MEDS: K and/or MAG REPLACEMENT MC SCH (19:33)
[2023-08-09 20:40] VITALS: BP 147/128; PULSE 101; RESP 17; TEMP 98.4; O2SAT 97
[2023-08-09] MEDS: docusate sod 100mg capsule PO SCH (21:30)
[2023-08-09] MEDS: nystatin 15 GM powder TP ONE (21:30)
[2023-08-09] MEDS: heparin, porcine 5000 units/ml vial SQ SCH (21:33)
[2023-08-09] MEDS: INSULIN LISPRO 100 UNIT/ML INSULN.PEN MULTI-DOSE SQ SCH (22:09)
[2023-08-09] MEDS: insulin glargine (Lantus) pen - multi-dose SQ SCH (22:10)
[2023-08-09] MEDS: HYDROcodone/acetaminophen 10/325mg tab PO PRN (23:03)
[2023-08-10] MEDS: piperacillin/tazo 3.375gm/50ml 50 ML IV SCH ×2 (00:41→19:47)
[2023-08-10] MEDS: VANCOMYCIN LEVEL IV SCH (03:00)
[2023-08-10 03:43] LABS: BASOPHILS # (AUTO) 0.1 X10'3 (0-0.2); BASOPHILS % (AUTO) 0.5 % (0-1); EOSINOPHILS # (AUTO) 0.2 X10'3 (0-0.9); HEMATOCRIT 31.5 % (35.0-45.0); HEMOGLOBIN 10.1 g/dl (12.0-16.0); LYMPHOCYTES # (AUTO) 2.7 X10'3 (1.1-4.8); LYMPHOCYTES % (AUTO) 17.9 % (21-51); MEAN CORPUSCULAR HEMOGLOBIN 28.6 PG (27.0-31.0); MEAN CORPUSCULAR HGB CONC 32.1 g/dL (33.0-36.5); MEAN CORPUSCULAR VOLUME 89.3 FL (78-98); MEAN PLATELET VOLUME 9.5 FL (7.4-10.4); MONOCYTES # (AUTO) 0.8 X10'3 (0-0.9); MONOCYTES % (AUTO) 5.6 % (2-12); NEUTROPHILS # (AUTO) 11.2 X10'3 (1.8-7.7); PLATELET COUNT 296 X10'3 (140-440); RED BLOOD COUNT 3.53 X10'6 (4.20-5.60); RED CELL DISTRIBUTION WIDTH 16.3 % (11.5-14.5); WHITE BLOOD COUNT 14.9 X10'3 (4.5-11.0)
[2023-08-10 03:59] LABS: ALBUMIN 2.3 G/DL (3.4-5.0); ANION GAP 7 (8-16); BLOOD UREA NITROGEN 52 MG/DL (7-18); BUN/CREATININE RATIO 22.1 (10.0-20.0); CHLORIDE 107 MMOL/L (99-107); CHOL/HDL RATIO 2.5 (0.00-4.99); CHOLESTEROL 81 MG/DL (0-200); CREATININE 2.35 MG/DL (0.40-0.90); HDL CHOLESTEROL 32 MG/DL (35-60); LDL CHOLESTEROL 43 MG/DL (50-100); SODIUM 137 MMOL/L (135-145); TOTAL CARBON DIOXIDE 22.8 MMOL/L (24-32); TRIGLYCERIDES 91 MG/DL (20-135); eCRCL 16 ML/MIN; eGFR 20 ML/MIN
[2023-08-10 04:01] LABS: CALCIUM 8.4 MG/DL (8.5-10.1); GLUCOSE 203 MG/DL (70-104); PHOSPHORUS 3.7 MG/DL (2.3-4.5); VANCOMYCIN,RANDOM 24.3 ug/mL (20.0-30.0)
[2023-08-10 07:00] VITALS: BP 117/53; PULSE 74; RESP 16; TEMP 97.9; O2SAT 96
[2023-08-10] MEDS: amLODIPine 5mg tablet PO SCH (07:50)
[2023-08-10 08:00] VITALS: RESP 17; O2SAT 97
[2023-08-10] MEDS: INSULIN LISPRO 100 UNIT/ML INSULN.PEN MULTI-DOSE SQ SCH (09:00)
[2023-08-10 10:00] VITALS: BP 107/55; PULSE 93; RESP 13; TEMP 97.3; O2SAT 96
[2023-08-10 18:00] VITALS: BP 157/65; PULSE 66; RESP 16; TEMP 98.1; O2SAT 94
[2023-08-10 22:53] VITALS: BP 155/76; PULSE 84; RESP 17; TEMP 98.4; O2SAT 96
[2023-08-11 03:33] LABS: BASOPHILS # (AUTO) 0.1 X10'3 (0-0.2); BASOPHILS % (AUTO) 1.2 % (0-1); EOSINOPHILS # (AUTO) 0.3 X10'3 (0-0.9); EOSINOPHILS % (AUTO) 2.3 % (0-6); HEMATOCRIT 29.8 % (35.0-45.0); HEMOGLOBIN 9.7 g/dl (12.0-16.0); LYMPHOCYTES # (AUTO) 2.7 X10'3 (1.1-4.8); LYMPHOCYTES % (AUTO) 22.5 % (21-51); MEAN CORPUSCULAR HEMOGLOBIN 28.9 PG (27.0-31.0); MEAN CORPUSCULAR HGB CONC 32.5 g/dL (33.0-36.5); MEAN CORPUSCULAR VOLUME 89.1 FL (78-98); MONOCYTES # (AUTO) 0.9 X10'3 (0-0.9); MONOCYTES % (AUTO) 7.2 % (2-12); NEUTROPHILS # (AUTO) 7.9 X10'3 (1.8-7.7); NEUTROPHILS % (AUTO) 66.8 % (42-75); PLATELET COUNT 314 X10'3 (140-440); RED BLOOD COUNT 3.35 X10'6 (4.20-5.60); RED CELL DISTRIBUTION WIDTH 15.9 % (11.5-14.5); WHITE BLOOD COUNT 11.9 X10'3 (4.5-11.0)
[2023-08-11 03:48] LABS: ALBUMIN 2.2 G/DL (3.4-5.0); ANION GAP 5 (8-16); BLOOD UREA NITROGEN 49 MG/DL (7-18); BUN/CREATININE RATIO 20.1 (10.0-20.0); CALCIUM 8.6 MG/DL (8.5-10.1); CHLORIDE 104 MMOL/L (99-107); CREATININE 2.44 MG/DL (0.40-0.90); MAGNESIUM 1.9 MG/DL (1.5-2.4); SODIUM 134 MMOL/L (135-145); TOTAL CARBON DIOXIDE 24.8 MMOL/L (24-32); eCRCL 16 ML/MIN; eGFR 19 ML/MIN
[2023-08-11 03:50] LABS: GLUCOSE 137 MG/DL (70-104); PHOSPHORUS 4.6 MG/DL (2.3-4.5); POTASSIUM 5.3 MMOL/L (3.5-5.1)
[2023-08-11 06:00] VITALS: BP 169/76; PULSE 86; RESP 16; TEMP 97.4; O2SAT 96
[2023-08-11] MEDS: vancomycin inj 500 MG in normal saline 100ml IV soln 100 ML IV SCH (09:05)
[2023-08-11 18:00] VITALS: BP 119/40; PULSE 91; RESP 15; TEMP 98.7; O2SAT 95
[2023-08-11] MEDS: LORazepam 1 MG tablet PO ONE (23:40)
[2023-08-11] MEDS: temazepam 15mg capsule PO ONE (23:53)
[2023-08-12] VITALS (18 sets, daily range): BP systolic 103–169; BP diastolic 15–94; PULSE 60–102; RESP 12–21; TEMP 97.3–98.5; O2SAT 92–100
[2023-08-12 06:45] LABS: BASOPHILS # (AUTO) 0.1 X10'3 (0-0.2); EOSINOPHILS # (AUTO) 0.3 X10'3 (0-0.9); EOSINOPHILS % (AUTO) 2.3 % (0-6); HEMATOCRIT 32.6 % (35.0-45.0); HEMOGLOBIN 10.4 g/dl (12.0-16.0); LYMPHOCYTES # (AUTO) 2.3 X10'3 (1.1-4.8); LYMPHOCYTES % (AUTO) 20.7 % (21-51); MEAN CORPUSCULAR HEMOGLOBIN 28.8 PG (27.0-31.0); MEAN CORPUSCULAR VOLUME 90.1 FL (78-98); MEAN PLATELET VOLUME 9.3 FL (7.4-10.4); MONOCYTES # (AUTO) 0.9 X10'3 (0-0.9); MONOCYTES % (AUTO) 8.4 % (2-12); NEUTROPHILS # (AUTO) 7.5 X10'3 (1.8-7.7); NEUTROPHILS % (AUTO) 67.6 % (42-75); PLATELET COUNT 340 X10'3 (140-440); RED BLOOD COUNT 3.61 X10'6 (4.20-5.60); RED CELL DISTRIBUTION WIDTH 16.2 % (11.5-14.5); WHITE BLOOD COUNT 11.1 X10'3 (4.5-11.0)
[2023-08-12 07:22] LABS: ALBUMIN 2.3 G/DL (3.4-5.0); ANION GAP 11 (8-16); BLOOD UREA NITROGEN 41 MG/DL (7-18); BUN/CREATININE RATIO 18.8 (10.0-20.0); CALCIUM 8.9 MG/DL (8.5-10.1); CHLORIDE 104 MMOL/L (99-107); CREATININE 2.18 MG/DL (0.40-0.90); POTASSIUM 4.8 MMOL/L (3.5-5.1); SODIUM 135 MMOL/L (135-145); TOTAL CARBON DIOXIDE 20.4 MMOL/L (24-32); eCRCL 18 ML/MIN; eGFR 22 ML/MIN
[2023-08-12 07:28] LABS: GLUCOSE 111 MG/DL (70-104); PHOSPHORUS 4.3 MG/DL (2.3-4.5)
[2023-08-12] MEDS: acetaminophen 325mg tablet PO PRN (09:44)
[2023-08-12] MEDS ORDERED: labetalol 20mg/4ml (5mg/ml) syringe IV PRN (10:45)
[2023-08-12] MEDS: ringers solution, lacted 1,000 ML IV ONE (10:45)
[2023-08-12] MEDS ORDERED: ondansetron/PF 4mg/2ml inj IV PRN (10:45)
[2023-08-12] MEDS ORDERED: morphine 4 MG/ML inj SYRINge IV PRN (10:45)
[2023-08-12] MEDS ORDERED: hydrALAZINE 20mg/ml inj. IV PRN (10:45)
[2023-08-12] MEDS: ringers solution, lacted 1,000 ML IV SCH (10:45)
[2023-08-12] MEDS ORDERED: morphine 2 MG/ML inj. syringe IV PRN (10:45)
[2023-08-12] MEDS ORDERED: ROPIVAcaine 0.5% (5mg/ml) 30ml vial ONE (15:30)
[2023-08-12] MEDS ORDERED: sevoflurane 250ml liquid IH ONE (15:38)
[2023-08-12] MEDS ORDERED: propofol inj 20 ML IV ONE (15:52)
[2023-08-12] MEDS: BUPIVAcaine/PF 2.5mg/ml (0.25%) 10ml vial ONE (19:00)
[2023-08-13 02:09] VITALS: BP 98/42; PULSE 72; TEMP 97.9; O2SAT 94
[2023-08-13 06:00] VITALS: BP 122/47; PULSE 91; TEMP 97.8; O2SAT 97
[2023-08-13 07:09] LABS: BASOPHILS # (AUTO) 0.1 X10'3 (0-0.2); BASOPHILS % (AUTO) 0.5 % (0-1); EOSINOPHILS # (AUTO) 0.3 X10'3 (0-0.9); EOSINOPHILS % (AUTO) 2.6 % (0-6); HEMATOCRIT 34.1 % (35.0-45.0); HEMOGLOBIN 10.7 g/dl (12.0-16.0); LYMPHOCYTES # (AUTO) 1.8 X10'3 (1.1-4.8); MEAN CORPUSCULAR HEMOGLOBIN 28.3 PG (27.0-31.0); MEAN CORPUSCULAR HGB CONC 31.4 g/dL (33.0-36.5); MEAN CORPUSCULAR VOLUME 90.3 FL (78-98); MEAN PLATELET VOLUME 8.9 FL (7.4-10.4); MONOCYTES # (AUTO) 0.9 X10'3 (0-0.9); MONOCYTES % (AUTO) 7.8 % (2-12); NEUTROPHILS # (AUTO) 8.4 X10'3 (1.8-7.7); NEUTROPHILS % (AUTO) 73.1 % (42-75); PLATELET COUNT 358 X10'3 (140-440); RED BLOOD COUNT 3.77 X10'6 (4.20-5.60); RED CELL DISTRIBUTION WIDTH 16.1 % (11.5-14.5); WHITE BLOOD COUNT 11.5 X10'3 (4.5-11.0)
[2023-08-13 07:12] LABS: ALBUMIN 2.2 G/DL (3.4-5.0); ANION GAP 8 (8-16); BLOOD UREA NITROGEN 38 MG/DL (7-18); BUN/CREATININE RATIO 17.3 (10.0-20.0); CHLORIDE 107 MMOL/L (99-107); MAGNESIUM 1.9 MG/DL (1.5-2.4); POTASSIUM 4.7 MMOL/L (3.5-5.1); SODIUM 138 MMOL/L (135-145); TOTAL CARBON DIOXIDE 23.3 MMOL/L (24-32); eCRCL 17 ML/MIN; eGFR 22 ML/MIN
[2023-08-13 07:14] LABS: CALCIUM 8.6 MG/DL (8.5-10.1); GLUCOSE 102 MG/DL (70-104); PHOSPHORUS 4.3 MG/DL (2.3-4.5)
[2023-08-13 11:00] VITALS: BP 137/61; PULSE 73; TEMP 97.5; O2SAT 95
[2023-08-13 18:00] VITALS: BP 155/76; PULSE 107; TEMP 98.4; O2SAT 93
[2023-08-13 20:00] VITALS: RESP 18
[2023-08-13 22:00] VITALS: BP 157/70; PULSE 106; RESP 16; TEMP 99.5; O2SAT 96
[2023-08-14 06:00] VITALS: BP 117/53; PULSE 74; RESP 16; TEMP 97.9; O2SAT 96
[2023-08-14] MEDS: VANCOMYCIN LEVEL IV ONE (07:30)
[2023-08-14 07:50] LABS: BASOPHILS # (AUTO) 0.1 X10'3 (0-0.2); BASOPHILS % (AUTO) 0.6 % (0-1); EOSINOPHILS # (AUTO) 0.2 X10'3 (0-0.9); EOSINOPHILS % (AUTO) 1.7 % (0-6); HEMATOCRIT 33.3 % (35.0-45.0); HEMOGLOBIN 10.6 g/dl (12.0-16.0); LYMPHOCYTES % (AUTO) 15.2 % (21-51); MEAN CORPUSCULAR HEMOGLOBIN 28.5 PG (27.0-31.0); MEAN CORPUSCULAR VOLUME 89.2 FL (78-98); MEAN PLATELET VOLUME 8.5 FL (7.4-10.4); MONOCYTES # (AUTO) 1.1 X10'3 (0-0.9); MONOCYTES % (AUTO) 8.1 % (2-12); NEUTROPHILS # (AUTO) 9.7 X10'3 (1.8-7.7); NEUTROPHILS % (AUTO) 74.4 % (42-75); PLATELET COUNT 347 X10'3 (140-440); RED BLOOD COUNT 3.73 X10'6 (4.20-5.60)
[2023-08-14 08:00] VITALS: PULSE 88
[2023-08-14 08:13] LABS: ALBUMIN 2.3 G/DL (3.4-5.0); ANION GAP 9 (8-16); BLOOD UREA NITROGEN 34 MG/DL (7-18); BUN/CREATININE RATIO 16.3 (10.0-20.0); CHLORIDE 106 MMOL/L (99-107); CREATININE 2.08 MG/DL (0.40-0.90); MAGNESIUM 1.7 MG/DL (1.5-2.4); POTASSIUM 4.3 MMOL/L (3.5-5.1); SODIUM 136 MMOL/L (135-145); TOTAL CARBON DIOXIDE 20.7 MMOL/L (24-32); eCRCL 18 ML/MIN; eGFR 23 ML/MIN
[2023-08-14 08:15] LABS: CALCIUM 8.5 MG/DL (8.5-10.1); GLUCOSE 112 MG/DL (70-104); PHOSPHORUS 3.7 MG/DL (2.3-4.5); VANCOMYCIN,TROUGH 17.2 ug/mL (10.0-20.0)
[2023-08-14] MEDS ORDERED: LINE600T11 PO (12:53)
[2023-08-14] MEDS ORDERED: JUVEN Smoothie Arginine/Glut./Ca2+Bmb (Juven 19.3pkt) 240ml cup PO SCH (17:30)
== END 2023-08-14 15:04 | disposition home health service (06) | DRG 853 ==
LOC: ER 13:18 → ED HOLD 16:42 → ORTHO 4S 20:39
PROVIDERS: ADMIT Family Medicine; ATTEND Family Medicine
PROC: 05HB33Z Insertion of Infusion Device into Right Basilic Vein, Percutaneous Approach (ICD-10-PCS; 2023-08-09)
PROC: 3E0T3BZ Introduction of Anesthetic Agent into Peripheral Nerves and Plexi, Percutaneous Approach (ICD-10-PCS; 2023-08-12)
PROC: 0Y6S0Z0 Detachment at Left 2nd Toe, Complete, Open Approach (ICD-10-PCS; principal; 2023-08-12 15:38)
DX: A41.9 Sepsis, unspecified organism (principal); N17.0 Acute kidney failure with tubular necrosis; N39.0 Urinary tract infection, site not specified; E11.52 Type 2 diabetes mellitus with diabetic peripheral angiopathy with gangrene; E11.42 Type 2 diabetes mellitus with diabetic polyneuropathy; E11.22 Type 2 diabetes mellitus with diabetic chronic kidney disease; E78.00 Pure hypercholesterolemia, unspecified; N18.30 Chronic kidney disease, stage 3 unspecified; G89.29 Other chronic pain; I12.9 Hypertensive chronic kidney disease with stage 1 through stage 4 chronic kidney disease, or unspecified chronic kidney disease; E11.621 Type 2 diabetes mellitus with foot ulcer; L97.529 Non-pressure chronic ulcer of other part of left foot with unspecified severity; D64.9 Anemia, unspecified; Z89.412 Acquired absence of left great toe; Z79.82 Long term (current) use of aspirin; Z79.899 Other long term (current) drug therapy; Z88.8 Allergy status to other drugs, medicaments and biological substances
CPT/HCPCS: 36410; 36415; 73630; 73718; 76937; 80048; 80061; 80202; 81001; 82948; 83036; 83605; 83735; 84100; 84145; 85025; 87040; 87077; 87081; 87088; 87186; 93005; 96365; 97110; 97161; 97530; 99285; A4618; A6222; A6223; A6446; A6449; A7000; C1751; C1758; G0378; J0360; J1644; J1815; J2270; J2405; J2543; J2704; J2795; J3370; J3490; J7030; J7040; J7120

== ENCOUNTER 2023-08-16 13:52 | Emergency (ER) | payer MEDICARE, MEDICAID ==
[~2023-08-16] VITALS: Ht 160 cm; Wt 69.5 kg
[~2023-08-16 13:52] MED LIST changes: +LINE600T11 PO
[2023-08-16 14:43] LABS: BASOPHILS # (AUTO) 0.1 X10'3 (0-0.2); BASOPHILS % (AUTO) 0.6 % (0-1); EOSINOPHILS # (AUTO) 0.2 X10'3 (0-0.9); EOSINOPHILS % (AUTO) 1.4 % (0-6); HEMATOCRIT 34.5 % (35.0-45.0); HEMOGLOBIN 11.1 g/dl (12.0-16.0); LYMPHOCYTES # (AUTO) 2.7 X10'3 (1.1-4.8); LYMPHOCYTES % (AUTO) 14.9 % (21-51); MEAN CORPUSCULAR HGB CONC 32.3 g/dL (33.0-36.5); MEAN PLATELET VOLUME 8.5 FL (7.4-10.4); MONOCYTES % (AUTO) 5.4 % (2-12); NEUTROPHILS % (AUTO) 77.7 % (42-75); PLATELET COUNT 464 X10'3 (140-440); RED BLOOD COUNT 3.83 X10'6 (4.20-5.60); RED CELL DISTRIBUTION WIDTH 16.3 % (11.5-14.5)
[2023-08-16 14:58] LABS: ALBUMIN 2.7 G/DL (3.4-5.0); ANION GAP 13 (8-16); BLOOD UREA NITROGEN 40 MG/DL (7-18); BUN/CREATININE RATIO 16.8 (10.0-20.0); CHLORIDE 103 MMOL/L (99-107); CREATININE 2.38 MG/DL (0.40-0.90); SODIUM 137 MMOL/L (135-145); TOTAL CARBON DIOXIDE 20.7 MMOL/L (24-32); eCRCL 16 ML/MIN; eGFR 20 ML/MIN
[2023-08-16 15:01] LABS: CALCIUM 8.8 MG/DL (8.5-10.1); GLUCOSE 200 MG/DL (70-104)
[2023-08-16 15:57] VITALS: BP 155/74; PULSE 96; RESP 15; TEMP 98.1; O2SAT 94
[2023-08-17] MEDS ORDERED: HYDR-3965 PO (15:40)
== END 2023-08-16 16:02 | disposition home or self-care (01) ==
LOC: ER 13:53
DX: L03.116 Cellulitis of left lower limb (principal); E78.00 Pure hypercholesterolemia, unspecified; I12.9 Hypertensive chronic kidney disease with stage 1 through stage 4 chronic kidney disease, or unspecified chronic kidney disease; E11.22 Type 2 diabetes mellitus with diabetic chronic kidney disease; N18.9 Chronic kidney disease, unspecified; G62.9 Polyneuropathy, unspecified; Z60.2 Problems related to living alone; Z88.8 Allergy status to other drugs, medicaments and biological substances; Z91.018 Allergy to other foods; Z79.82 Long term (current) use of aspirin; Z79.899 Other long term (current) drug therapy
CPT/HCPCS: 36415; 80048; 85025; 99283; A6258; A6446

== ENCOUNTER 2023-08-22 12:26 | Emergency (ER) | payer MEDICARE, MEDICAID ==
[~2023-08-22] VITALS: Ht 236.2 cm; Wt 69.5 kg
[~2023-08-22 12:26] MED LIST changes: +HYDR-3965 PO
[2023-08-22 15:11] VITALS: BP 196/74; PULSE 86; RESP 17; TEMP 98.6; O2SAT 98
== END 2023-08-22 15:05 ==
LOC: ER 12:26
DX: S09.8XXA Other specified injuries of head, initial encounter (principal); I12.9 Hypertensive chronic kidney disease with stage 1 through stage 4 chronic kidney disease, or unspecified chronic kidney disease; E11.22 Type 2 diabetes mellitus with diabetic chronic kidney disease; N18.9 Chronic kidney disease, unspecified; E78.00 Pure hypercholesterolemia, unspecified; G62.9 Polyneuropathy, unspecified; Z60.2 Problems related to living alone; Z88.8 Allergy status to other drugs, medicaments and biological substances; Z91.018 Allergy to other foods; Z79.82 Long term (current) use of aspirin; Z79.899 Other long term (current) drug therapy; W18.39XA Other fall on same level, initial encounter; Y93.89 Activity, other specified; Y92.89 Other specified places as the place of occurrence of the external cause; Y99.8 Other external cause status
CPT/HCPCS: 70450; 72125; 99284

== ENCOUNTER 2023-08-29 14:02 | Inpatient (IN) | payer MEDICARE, MEDICAID ==
[~2023-08-29] VITALS: Ht 160 cm; Wt 71.0 kg
[~2023-08-29 14:02] MED LIST changes: -LINE600T11 PO
[2023-08-29] MEDS ORDERED: morphine 2 MG/ML inj. syringe IV PRN (18:50)
[2023-08-29] MEDS ORDERED: potassium Cl 20 mEq SR tablet PO PRN ×2 (18:50)
[2023-08-29] MEDS ORDERED: acetaminophen 325mg tablet PO PRN (18:50)
[2023-08-29] MEDS ORDERED: potassium Cl 40MEQ/1/2NS 520ml 520 ML IV PRN (18:50)
[2023-08-29] MEDS ORDERED: magnesium 4gm in 100ml NS 100 ML IV PRN (18:50)
[2023-08-29] MEDS ORDERED: magnesium Cl slow-release 64mg tablet PO PRN (18:50)
[2023-08-29] MEDS ORDERED: ondansetron/PF 4mg/2ml inj IV PRN (18:50)
[2023-08-29] MEDS ORDERED: magnesium 2GM in 50ml NS 50 ML IV PRN (18:50)
[2023-08-29] MEDS: labetalol 20mg/4ml (5mg/ml) syringe IV ONE (19:51)
[2023-08-29] MEDS: normal saline 1000ml 1,000 ML IV SCH ×2 (19:56→22:25)
[2023-08-29] MEDS: docusate sod 100mg capsule PO SCH (20:00)
[2023-08-29] MEDS: K and/or MAG REPLACEMENT MC SCH (20:00)
[2023-08-29 22:59] LABS: BASOPHILS # (AUTO) 0.2 X10'3 (0-0.2); BASOPHILS % (AUTO) 1.2 % (0-1); EOSINOPHILS # (AUTO) 0.3 X10'3 (0-0.9); EOSINOPHILS % (AUTO) 2.4 % (0-6); HEMATOCRIT 30.6 % (35.0-45.0); HEMOGLOBIN 9.8 g/dl (12.0-16.0); LYMPHOCYTES # (AUTO) 2.4 X10'3 (1.1-4.8); LYMPHOCYTES % (AUTO) 17.3 % (21-51); MEAN CORPUSCULAR HEMOGLOBIN 28.9 PG (27.0-31.0); MEAN CORPUSCULAR VOLUME 90.3 FL (78-98); MEAN PLATELET VOLUME 8.6 FL (7.4-10.4); MONOCYTES # (AUTO) 1.1 X10'3 (0-0.9); MONOCYTES % (AUTO) 8.2 % (2-12); NEUTROPHILS # (AUTO) 9.7 X10'3 (1.8-7.7); NEUTROPHILS % (AUTO) 70.9 % (42-75); PLATELET COUNT 271 X10'3 (140-440); RED BLOOD COUNT 3.39 X10'6 (4.20-5.60); RED CELL DISTRIBUTION WIDTH 16.5 % (11.5-14.5); WHITE BLOOD COUNT 13.7 X10'3 (4.5-11.0)
[2023-08-29 23:08] LABS: ALANINE AMINOTRANSFERASE 27 U/L (12-78); ALBUMIN 2.5 G/DL (3.4-5.0); ALKALINE PHOSPHATASE 105 IU/L (46-116); ANION GAP 8 (8-16); BLOOD UREA NITROGEN 45 MG/DL (7-18); BUN/CREATININE RATIO 19.7 (10.0-20.0); CHLORIDE 107 MMOL/L (99-107); CREATININE 2.28 MG/DL (0.40-0.90); POTASSIUM 4.7 MMOL/L (3.5-5.1); SODIUM 139 MMOL/L (135-145); TOTAL CARBON DIOXIDE 24.4 MMOL/L (24-32); eCRCL 17 ML/MIN; eGFR 21 ML/MIN
[2023-08-29 23:14] LABS: ALBUMIN/GLOBULIN RATIO 0.4 (1.1-1.5); ASPARTATE AMINO TRANSFERASE 15 U/L (10-37); BILIRUBIN,TOTAL 0.2 MG/DL (0.1-1.0); CALCIUM 8.8 MG/DL (8.5-10.1); GLUCOSE 201 MG/DL (70-104); TOTAL PROTEIN 8.1 G/DL (6.4-8.2)
[2023-08-29 23:30] VITALS: BP 148/70; PULSE 93; RESP 20; TEMP 97.7; O2SAT 98
[2023-08-29] MEDS ORDERED: glucagon, human recombinant 1mg kit SUBCUT PRN (23:40)
[2023-08-29] MEDS ORDERED: dextrose 50%-water 50ml dispensing syringe IV PRN ×2 (23:40)
[2023-08-29] MEDS ORDERED: DEXTROSE 15 GM of carb/4 tabs (each vial/BOTTLE has 4 tablets) PO PRN ×2 (23:40)
[2023-08-30] MEDS: piperacillin/tazo 3.375gm/50ml 50 ML IV SCH (01:22)
[2023-08-30] MEDS: vancomycin inj 500 MG in normal saline 100ml IV soln 100 ML IV SCH (01:25)
[2023-08-30 07:00] VITALS: BP 113/72; PULSE 92; RESP 16; TEMP 98.2; O2SAT 96
[2023-08-30 07:23] LABS: BASOPHILS # (AUTO) 0.1 X10'3 (0-0.2); BASOPHILS % (AUTO) 0.6 % (0-1); EOSINOPHILS # (AUTO) 0.3 X10'3 (0-0.9); EOSINOPHILS % (AUTO) 2.5 % (0-6); HEMATOCRIT 28.1 % (35.0-45.0); LYMPHOCYTES # (AUTO) 2.5 X10'3 (1.1-4.8); LYMPHOCYTES % (AUTO) 21.6 % (21-51); MEAN CORPUSCULAR HEMOGLOBIN 28.6 PG (27.0-31.0); MEAN CORPUSCULAR HGB CONC 32.1 g/dL (33.0-36.5); MEAN PLATELET VOLUME 8.8 FL (7.4-10.4); MONOCYTES # (AUTO) 1.1 X10'3 (0-0.9); MONOCYTES % (AUTO) 9.5 % (2-12); NEUTROPHILS # (AUTO) 7.7 X10'3 (1.8-7.7); NEUTROPHILS % (AUTO) 65.8 % (42-75); PLATELET COUNT 284 X10'3 (140-440); RED BLOOD COUNT 3.16 X10'6 (4.20-5.60); RED CELL DISTRIBUTION WIDTH 16.3 % (11.5-14.5); WHITE BLOOD COUNT 11.7 X10'3 (4.5-11.0)
[2023-08-30 07:37] LABS: ALBUMIN 2.3 G/DL (3.4-5.0); ANION GAP 9 (8-16); BLOOD UREA NITROGEN 44 MG/DL (7-18); CHLORIDE 108 MMOL/L (99-107); POTASSIUM 4.7 MMOL/L (3.5-5.1); SODIUM 138 MMOL/L (135-145); TOTAL CARBON DIOXIDE 20.7 MMOL/L (24-32); eCRCL 18 ML/MIN; eGFR 23 ML/MIN
[2023-08-30 07:41] LABS: CALCIUM 8.6 MG/DL (8.5-10.1); GLUCOSE 144 MG/DL (70-104)
[2023-08-30 08:00] VITALS: RESP 18; O2SAT 96
[2023-08-30] MEDS: HYDROcodone/acetaminophen 5mg/325mg tablet PO PRN (08:47)
[2023-08-30 10:30] VITALS: BP 129/59; PULSE 93; RESP 18; TEMP 97.9; O2SAT 93
[2023-08-30] MEDS: JUVEN Smoothie Arginine/Glut./Ca2+Bmb (Juven 19.3pkt) 240ml cup PO SCH (17:30)
[2023-08-30 18:00] VITALS: BP 162/59; PULSE 85; RESP 16; TEMP 97.2; O2SAT 95
[2023-08-30 20:00] VITALS: RESP 16; O2SAT 95
[2023-08-30] MEDS: lisinopril 20mg tablet PO SCH (20:02)
[2023-08-30] MEDS: aspirin 81mg, enteric-coated 1 TAB TABLET.DR PO SCH (20:02)
[2023-08-30] MEDS: loratadine 10mg tablet PO SCH (20:03)
[2023-08-30 22:00] VITALS: BP 150/53; PULSE 79; RESP 16; TEMP 98; O2SAT 95
[2023-08-31] MEDS: gabapentin 300mg capsule PO SCH (00:15)
[2023-08-31] MEDS: vancomycin inj 500 MG in normal saline 100ml IV soln 100 ML IV SCH (01:48)
[2023-08-31] MEDS: Melatonin 3mg tablet PO SCH (02:54)
[2023-08-31 06:00] VITALS: BP 166/61; PULSE 88; RESP 16; TEMP 98.2; O2SAT 97
[2023-08-31] MEDS: atorvastatin 20mg tablet PO SCH (07:40)
[2023-08-31 08:04] VITALS: RESP 18
[2023-08-31 10:42] VITALS: BP 147/87; PULSE 56; RESP 16; TEMP 97.8; O2SAT 95
[2023-08-31] MEDS ORDERED: AMOX-580 PO (15:10)
[2023-09-02] MEDS ORDERED: VANCOMYCIN LEVEL IV ONE (00:30)
== END 2023-08-31 16:44 | disposition home or self-care (01) | DRG 862 ==
LOC: ER 14:03 → UNDOADMIN 18:48 → ED HOLD 18:48 → EDBEDREQ 21:19 → ORTHO 4S 22:00 → ED HOLD 22:00
PROVIDERS: ADMIT Internal Medicine; ATTEND Internal Medicine
DX: T81.49XA Infection following a procedure, other surgical site, initial encounter (principal); N17.0 Acute kidney failure with tubular necrosis; E11.22 Type 2 diabetes mellitus with diabetic chronic kidney disease; E11.42 Type 2 diabetes mellitus with diabetic polyneuropathy; E78.00 Pure hypercholesterolemia, unspecified; N18.9 Chronic kidney disease, unspecified; I12.9 Hypertensive chronic kidney disease with stage 1 through stage 4 chronic kidney disease, or unspecified chronic kidney disease; Y83.8 Other surgical procedures as the cause of abnormal reaction of the patient, or of later complication, without mention of misadventure at the time of the procedure; Z88.4 Allergy status to anesthetic agent; Z91.018 Allergy to other foods; Z79.82 Long term (current) use of aspirin; Z79.899 Other long term (current) drug therapy; Y92.89 Other specified places as the place of occurrence of the external cause
CPT/HCPCS: 36415; 80048; 80053; 82948; 83605; 83735; 85025; 87081; 97161; 97530; 99285; G0378; J2543; J3370; J3490; J7030